=== PATIENT | female | born 1985 | race African-American/Black ===

== ENCOUNTER 2017-03-04 09:07 | Emergency (ER) | payer SELFPAY ==
[2017-03-04 09:29] VITALS: BP 130/85
--- NOTE | 2017-03-04 09:52 | EDM.PDOC ---
ED HPI RENAL/ - General Chief Complaint: Genitourinary Problem Stated Complaint: Blood in urine Time Seen by Provider: 03/04/17 09:35 Source of Information: Reports: Patient, RN notes reviewed History Limitations: Reports: No limitations - History of Present Illness INITIAL COMMENTS - FREE TEXT/NARRATIVE: 31 year old female presents to the ED with chief complaint of blood in her urine. She noticed the blood in her urine two days ago. Prior to that, she has some pelvic discomfort, dysuria, and flank pain. These symptoms have now subsided. She says she feels feverish at times. No chills or shakes. No abdominal pain, pelvic pain, nausea, vomiting. Her LMP was 01/19/17. She had a negative test at home. She just arrived to the [facility] from [facility] to be with her . They have one child who also came with her. They said that they were prescribed clomid prior to getting with their first chills. They are hoping for another child and would like to discuss treatment with clomid again. - Related Data Allergies/ADRs: Allergies Allergy/AdvReac Type Severity Reaction Status Date / Time No Known Allergies Allergy Verified 03/04/17 09:33 Home Meds: Home Meds Sulfamethoxazole/Trimethoprim [Bactrim Ds Tablet] 1 each PO BID #6 tablet [Rx] Past Medical History - Past Health History Medical/Surgical History: Denies Medical/Surgical History Social & Family History - Tobacco Use Smoking Status *Q: Never Smoker - Caffeine Use Caffeine Use: Reports: None - Recreational Drug Use Recreational Drug Use: No ED ROS GENERAL - Review of Systems Review Of Systems: See Below Constitutional: Reports: fever. Denies: chills, diaphoresis Respiratory: Reports: No Symptoms Cardiovascular: Reports: No symptoms GI/Abdominal: Reports: No symptoms. Denies: Abdominal pain, Nausea, Vomiting : Reports: hematuria. Denies: dysuria, flank pain, frequency ED EXAM, RENAL/ - Physical Exam Exam: See Below Exam Limited By: No limitations General Appearance: alert, WD/WN, no apparent distress Respiratory/Chest: no respiratory distress, lungs clear, normal breath sounds Cardiovascular: regular rate, rhythm GI/Abdominal: normal bowel sounds, soft, non tender Back Exam: normal inspection, full range of motion. No: CVA tenderness (L), CVA tenderness (R) Course - Vital Signs Last Recorded V/S: Last Vital Signs Temp 97.4 F 03/04/17 09:28 Pulse 74 03/04/17 09:28 Resp 20 03/04/17 09:28 BP 130/85 03/04/17 09:28 Pulse Ox 100 03/04/17 09:28 - Orders/Labs/Meds Labs: Laboratory Tests 03/04/17 03/04/17 Range/Units 09:30 09:30 Urine Color [place] H (Yellow) Urine Appearance Slt cloudy H (Clear) Urine pH 7.0 (5.0-8.0) Ur Specific [place] 1.020 (1.005-1.030) Urine Protein 1+ H (Negative) Urine Glucose (UA) Negative (Negative) Urine Ketones Negative (Negative) Urine Occult Blood 3+ H (Negative) Urine Nitrite Negative (Negative) Urine Bilirubin Negative (Negative) Urine Urobilinogen 0.2 (0.2-1.0) Ur Leukocyte Esterase 2+ H (Negative) Urine RBC 75-100 H (0-5) /hpf Urine WBC 5-10 H (0-5) /hpf Ur Epithelial Cells 10-20 H (0-5) /hpf Urine Bacteria Few (FEW) /hpf Urine Mucus Not seen (FEW) /hpf Urine HCG, Qual Negative (NEGATIVE) - Re-Assessments/Exams Free Text/Narrative Re-Assessment/Exam: Hcg negative. UA positive for infection. Culture ordered. Will start patient on Bactrim DS. Will refer to Celsa Mackey NP for fertility concerns. Departure - Departure Time of Disposition: 10:22 Disposition: Home, Self-Care 01 Condition: good Clinical Impression: UTI, Urinary tract infectious disease Prescriptions: Sulfamethoxazole/Trimethoprim [Bactrim Ds Tablet] 1 each PO BID #6 tablet Instructions: Urinary Tract Infection, Adult, [id number] Referrals: PCP,None [Primary Care Provider] - Forms: ED Department Discharge Additional Instructions: Bactrim DS 1 tab twice a day for 3 days [facility] ([place] [address] from [facility]) is open from Noon-4pm today Drink plenty of water Tylenol 650mg every 4-6 hours as needed for pain or fever You can also take Ibuprofen 400mg every 8 hours as needed for pain or fever Return to ER if symptoms worsen Follow-up with Celsa Mackey NP in [facility]. Call [phone] to schedule an appointment
== END 2017-03-04 10:55 | disposition home or self-care (01) ==
LOC: JD.ED 09:07
DX: N39.0 Urinary tract infection, site not specified (principal)
CPT/HCPCS: 81001; 81025; 99283

== ENCOUNTER 2017-08-08 22:10 | Emergency (ER) | payer BC, OTHER ==
[2017-08-08 22:17] VITALS: BP 120/76
[2017-08-08] MEDS ORDERED: Sodium Chloride 0.9% 10 ML Syringe FLUSH PRN (22:46)
[2017-08-08] MEDS ORDERED: Famotidine 20 MG/2 ML SDV IVPUSH ONE (22:46)
[2017-08-08] MEDS ORDERED: Ondansetron 4 MG/2 ML SDV IVPUSH ONE (22:46)
[2017-08-08] MEDS ORDERED: Sodium Chloride 0.9% 1,000 ML IV SCH (23:00)
--- NOTE | 2017-08-08 23:05 | EDM.PDOC ---
ED HPI GENERAL MEDICAL PROBLEM - General Chief Complaint: Chest Pain Stated Complaint: CHEST PAIN Time Seen by Provider: 08/08/17 22:37 Source of Information: Reports: Patient, RN Notes Reviewed - History of Present Illness INITIAL COMMENTS - FREE TEXT/NARRATIVE: 31-year-old female developed onset of anterior chest discomfort shortly after eating this last evening. The pain did start upper mid abdomen radiating up the center of her chest toward the base of her neck. She has had history of GE reflux type symptoms in the past and did take an omeprazole at home prior to coming in. S He also did have some nausea with this but no vomiting. She does not feel short of breath. She is 25 weeks . That has been going well for her. No lower abdominal pain or cramping at this time. There has been no vaginal bleeding or spotting. 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 (see below) Other Treatments AEROBICS TEACHER: omeprazole Right Chest Pain Score (Numeric/FACES): 8 - Related Data Allergies Allergy/AdvReac Type Severity Reaction Status Date / Time Buine Allergy Abdominal Uncoded 08/08/17 22:18 Pain Home Meds: Home Meds Omeprazole 20 mg PO DAILY 08/08/17 [History] Vit No.129/Iron/FA [ Tablet] 1 each PO DAILY 08/08/17 [History] Past Medical History - Past Health History Medical/Surgical History: Denies Medical/Surgical History HEENT History: Reports: Impaired Vision Gastrointestinal History: Reports: GERD Genitourinary History: Reports: Renal Calculus 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 Denies: Lightheadedness GI/Abdominal: Reports: Abdominal Pain (Upper mid abdomen), Nausea. Denies: Diarrhea, Vomiting : Reports: No Symptoms Musculoskeletal: Reports: Back Pain Skin: Reports: No Symptoms (Occasional mild back discomfort) Neurological: Denies: Numbness, Tingling ED EXAM, GI/ABD - Physical Exam Exam: See Below (Blood pressure 120/76, temp 97.2, pulse 89 respirations 16, oximetry 100% on room air) General Appearance: Alert, No Apparent Distress Nose: Normal Inspection Throat/Mouth: Normal Inspection Respiratory/Chest: No Respiratory Distress, Lungs Clear, Normal Breath Sounds Cardiovascular: Regular Rate, Rhythm GI/Abdominal Exam: Soft, Tender (Primary mild tenderness upper mid abdomen, mild tenderness right lower quadrant). No: Guarding, Rebound Back Exam: No: CVA Tenderness (L), CVA Tenderness (R) Extremities: Normal Inspection. No: Pedal Edema, Leg Pain, Increased Warmth Neurological: Alert, Oriented, No Motor/Sensory Deficits Skin Exam: Warm, Dry, Normal Color Course - Vital Signs Last Recorded V/S: Last Vital Signs Temp 97.2 F 08/08/17 22:12 Pulse 89 08/08/17 22:12 Resp BP 120/76 08/08/17 22:12 Pulse Ox - Orders/Labs/Meds Orders: Active Orders 24 hr Category Date Time Status Peripheral IV Care [RC] . DIRECTED Care 08/08/17 22:47 Active CBC WITH AUTO DIFF [HEME] Stat Lab 08/08/17 22:46 Ordered COMPREHENSIVE METABOLIC PN,CMP [CHEM] Stat Lab 08/08/17 22:46 Ordered CRP [C-REACTIVE PROTEIN] [CHEM] Routine Lab 08/08/17 22:46 Ordered Acetaminophen [Tylenol] Med 08/08/17 23:53 Once 650 mg PO NOW ONE Sodium Chloride 0.9% [Normal Saline] 1,000 ml Med 08/08/17 23:00 Active IV ASDIRECTED Sodium Chloride 0.9% [Saline Flush] Med 08/08/17 22:46 Active 10 ml FLUSH ASDIRECTED PRN Peripheral IV Insertion Adult [OM.PC] Stat Oth 08/08/17 22:46 Ordered Medication Orders Sodium Chloride (Normal Saline) 1,000 mls @ 150 mls/hr IV ASDIRECTED TRACY Last Admin: 08/08/17 23:03 Dose: 150 mls/hr Sodium Chloride (Saline Flush) 10 ml FLUSH ASDIRECTED PRN PRN Reason: Keep Vein Open Last Admin: 08/08/17 23:05 Dose: 10 ml Meds: Medications Generic Name Dose Route Start Last Admin Trade Name Purvi PRN Reason Stop Dose Admin Sodium Chloride 1,000 mls @ 150 mls/hr 08/08/17 23:00 08/08/17 23:03 Normal Saline IV 150 mls/hr ASDIRECTED TRACY Administration Sodium Chloride 10 ml 08/08/17 22:46 08/08/17 23:05 Saline Flush FLUSH 10 ml ASDIRECTED PRN Administration Keep Vein Open Discontinued Medications Generic Name Dose Route Start Last Admin Trade Name Purvi PRN Reason Stop Dose Admin Famotidine 20 mg 08/08/17 22:46 08/08/17 23:06 Pepcid IVPUSH 08/08/17 22:47 20 mg ONETIME ONE Administration Ondansetron HCl 4 mg 08/08/17 22:46 08/08/17 23:04 Zofran IVPUSH 08/08/17 22:47 4 mg ONETIME ONE Administration - Re-Assessments/Exams Free Text/Narrative Re-Assessment/Exam: 08/08/17 23:54 Labs have been ordered with concern for possible gallbladder disease, less likely appendicitis. On exam initially she was tender right upper quadrant to some extent and then also did have some right lower and right mid abdominal tenderness. Unfortunately lab has been able to find a suitable vein to run these studies after multiple attempts. She feels better. Therefore we are going to cancel the lab work. We'll give Tylenol 650 by mouth at this time for mild to moderate left-sided headache. Her blood pressures been running in the 110 to 114 range systolic, not elevated. She has no peripheral leg or ankle edema. O2 sats continue to run in the 100% range. Discharge instructions as documented. Etiology of upper abdominal, chest discomfort most likely GE reflux which she has had in the past. Departure - Departure Time of Disposition: 23:56 Disposition: Home, Self-Care 01 Condition: Fair (GE reflux) Clinical Impression: Second trimester GE reflux Qualifiers: Esophagitis presence: without esophagitis Qualified Code(s): K21.9 - Gastro- esophageal reflux disease without esophagitis - Discharge Information Forms: ED Department Discharge Additional Instructions: Clear liquids until morning, then very careful bland diet as tolerated, avoid real fatty or spicy foods for now, follow-up with your regular clinical providers as needed if symptoms not resolving as expected, return to ED if symptoms worsening in any way. - My Orders Last 24 Hours: My Active Orders 08/08/17 22:46 CBC WITH AUTO DIFF [HEME] Stat COMPREHENSIVE METABOLIC PN,CMP [CHEM] Stat CRP [C-REACTIVE PROTEIN] [CHEM] Routine Sodium Chloride 0.9% [Saline Flush] 10 ml FLUSH ASDIRECTED PRN Peripheral IV Insertion Adult [OM.PC] Stat 08/08/17 22:47 Peripheral IV Care [RC] . DIRECTED 08/08/17 23:00 Sodium Chloride 0.9% [Normal Saline] 1,000 ml IV ASDIRECTED 08/08/17 23:53 Acetaminophen [Tylenol] 650 mg PO NOW ONE - Assessment/Plan Last 24 Hours: My Active Orders 08/08/17 22:46 CBC WITH AUTO DIFF [HEME] Stat COMPREHENSIVE METABOLIC PN,CMP [CHEM] Stat CRP [C-REACTIVE PROTEIN] [CHEM] Routine Sodium Chloride 0.9% [Saline Flush] 10 ml FLUSH ASDIRECTED PRN Peripheral IV Insertion Adult [OM.PC] Stat 08/08/17 22:47 Peripheral IV Care [RC] . DIRECTED 08/08/17 23:00 Sodium Chloride 0.9% [Normal Saline] 1,000 ml IV ASDIRECTED 08/08/17 23:53 Acetaminophen [Tylenol] 650 mg PO NOW ONE
[2017-08-08] MEDS ORDERED: Acetaminophen 325 MG Tab PO ONE (23:53)
== END 2017-08-09 00:10 | disposition home or self-care (01) ==
LOC: JD.ED 22:10
DX: O99.612 Diseases of the digestive system complicating pregnancy, second trimester (principal); K21.9 Gastro-esophageal reflux disease without esophagitis; Z79.899 Other long term (current) drug therapy; Z87.442 Personal history of urinary calculi; Z3A.25 25 weeks gestation of pregnancy
CPT/HCPCS: 96361; 96374; 96375; 99285; A9270; J2405; J7040; J7050; 99284

== ENCOUNTER 2017-12-06 00:10 | Inpatient (IN) | payer BC ==
[2017-12-06] MEDS ORDERED: Lactated Ringers 1,000 ML IV SCH (01:15)
[2017-12-06] MEDS ORDERED: Lidocaine 1% 50 ML MDV INJECT ONE (02:30)
[2017-12-06] MEDS ORDERED: Sodium Chloride 0.9% 10 ML Syringe FLUSH PRN (02:30)
[2017-12-06] MEDS ORDERED: Oxytocin/Lactated Ringers 10 UNIT/1,000 ML BAG IV SCH (02:30)
[2017-12-06] MEDS ORDERED: Nalbuphine 20 MG/1 ML Amp IVPUSH PRN (02:30)
[2017-12-06] MEDS ORDERED: Ondansetron 4 MG/2 ML SDV IVPUSH PRN (02:30)
--- NOTE | 2017-12-06 03:08 | PCM.DEL ---
L & D Note - General Info Date of Service: 12/06/17 Mother's Due Date: 12/15/17 - Delivery Note Labor: Spontaneous, Augmented by ARM (Amniotomy clear fluid at 0239 hrs. on 12/06/17. (Patient was complete at that time)) Delivery Outcome: Livebirth (Female liveborn 12/06/17 at 0249 hrs. MIRANDA no nuchal cord Apgars 8/9 weight 20/6/40 grams 5 pounds 13.1 ounces) Infant Delivery Method: Spontaneous Vaginal Delivery-Single Delivery Mode: Spontaneous Presentation: Left Occiput Anterior (MIRANDA) Nuchal Cord: None Prep: Povidone-Iodine (Betadine Anesthesia Type: None Amniotic Fluid Description: Clear Episiotomy Type: None Laceration: None Placenta: Intact, Spontaneous (Placenta delivered spontaneously at 0252 hrs. on 12/06/17.) Cord: 3 Vessels Estimated Blood Loss: 250 Resuscitation Needed: No : Suctioned, Bulb Syringe, Stimulated, Warmed, Warmer Used Provider: Trever Russ Score 1 min: 8 Score 5 min: 9 - Patient Data Weight - Most Recent: 194 lb Lab Results Last 24 Hours: Laboratory Results - last 24 hr 12/06/17 Range/Units 02:00 WBC 11.33 H (3.98-10.04) K/mm3 RBC 4.24 (3.98-5.22) M/mm3 Hgb 11.8 (11.2-15.7) gm/L Hct 34.9 (34.1-44.9) % MCV 82.3 (79.4-94.8) fl MCH 27.8 (25.6-32.2) pg MCHC 33.8 (32.2-35.5) g/dl RDW Std Deviation 40.1 (36.4-46.3) fL Plt Count 251 (182-369) K/mm3 MPV 10.4 (9.4-12.3) fl Neut % (Auto) 65.0 (34.0-71.1) % Lymph % (Auto) 25.8 (19.3-51.7) % [place] % (Auto) 8.3 (4.7-12.5) % Eos % (Auto) 0.5 L (0.7-5.8) Baso % (Auto) 0.1 (0.1-1.2) % Neut # (Auto) 7.37 H (1.56-6.13) K/mm3 Lymph # (Auto) 2.92 (1.18-3.74) K/mm3 [place] # (Auto) 0.94 H (0.24-0.36) K/mm3 Eos # (Auto) 0.06 (0.04-0.36) K/mm3 Baso # (Auto) 0.01 (0.01-0.08) K/mm3 Med Orders - Current: Current Medications Lactated Ringer's (Ringers, Lactated) 1,000 mls @ 125 mls/hr IV ASDIRECTED TRACY Oxytocin/Lactated Ringer's (Pitocin In Lr 10 Units/1,000 Ml) 10 unit in 1,000 mls @ 500 mls/hr IV .CONTINUOUS TRACY Nalbuphine HCl (Nubain) 10 mg IVPUSH Q2H PRN PRN Reason: Pain (moderate 4-6) Ondansetron HCl (Zofran) 4 mg IVPUSH Q4H PRN PRN Reason: Nausea/Vomiting Sodium Chloride (Saline Flush) 10 ml FLUSH ASDIRECTED PRN PRN Reason: Keep Vein Open Discontinued Medications Lidocaine HCl (Xylocaine 1%) 50 ml INJECT ONETIME ONE Stop: 12/06/17 02:31 - Problem List & Annotations (1) 38 weeks gestation of SNOMED Code(s): 65466162 Code(s): Z3A.38 - 38 WEEKS GESTATION OF Status: Acute Current Visit: Yes (2) Delivery normal SNOMED Code(s): 43294747 Code(s): O80 - ENCOUNTER FOR FULL-TERM UNCOMPLICATED DELIVERY; Z37.9 - OUTCOME OF DELIVERY, UNSPECIFIED Status: Acute Current Visit: Yes - Problem List Review Problem List Initiated/Reviewed/Updated: No - My Orders Last 24 Hours: My Active Orders 12/06/17 01:15 Non Stress Test [RC] PER UNIT ROUTINE Vital Signs [RC] PER UNIT ROUTINE Lactated Ringers [Ringers, Lactated] 1,000 ml IV ASDIRECTED 12/06/17 01:46 Monitoring [RC] CONTINUOUS 12/06/17 01:47 Resuscitation Status Routine 12/06/17 02:00 TYPE AND SCREEN [BBK] Stat 12/06/17 02:30 Patient Status [ADT] Routine Activity as Tolerated [RC] PFP Communication Order [RC] ASDIRECTED Heart Tones [RC] ASDIRECTED Notify Provider [RC] PFP Notify Provider [RC] PRN Peripheral IV Care [RC] . DIRECTED Vital Signs [RC] PER UNIT ROUTINE Nalbuphine [Nubain] 10 mg IVPUSH Q2H PRN Ondansetron [Zofran] 4 mg IVPUSH Q4H PRN Oxytocin/Lactated Ringers [Pitocin in LR 10 Units/1,000 ML] 10 unit in 1,000 ml IV .CONTINUOUS Sodium Chloride 0.9% [Saline Flush] 10 ml FLUSH ASDIRECTED PRN Electronic Heart Tones Ext w TOCO [WOMSER] Routine Electronic Heart Tones Internal [WOMSER] Per Unit Routine Peripheral IV Insertion Adult [OM.PC] Routine 12/06/17 Breakfast Regular Diet [DIET]
--- NOTE | 2017-12-06 03:12 | PCM.LDHP ---
L&D History of Present Illness - General Date of Service: 12/06/17 Admit Problem/Dx: Patient Status Order with Admit Dx/Problem 12/06/17 01:15 Patient Status [ADT] Routine 12/06/17 02:30 Patient Status [ADT] Routine Admission Diagnosis/Problem Admission Diagnosis/Problem Source of Information: Patient History Limitations: Reports: No Limitations - History of Present Illness Introduction:: 32-year-old 001 BERRY 12/15/17 presented to labor and delivery at 38 weeks 5 days estimated gestational age complaining of contractions every 3-4 minutes. No history of gush of fluid her group B strep was negative patient progressed from 1 cm dilated when admitted to labor and delivery just around midnight to delivery at 0 0249 hrs. Location, : Reports: Abdomen, Lower back Quality: Reports: Ache, Burning, Pressure Improves with: Reports: None Worsens with: Reports: None Associated Symptoms: Reports: N - Related Data Allergies/Adverse Reactions: Allergies Allergy/AdvReac Type Severity Reaction Status Date / Time Buine Allergy Abdominal Uncoded 08/08/17 22:18 Pain Home Medications: Home Meds Omeprazole 20 mg PO DAILY 08/08/17 [History] Vit No.129/Iron/FA [ Tablet] 1 each PO DAILY 08/08/17 [History] Past Medical History - Past Health History Medical/Surgical History: Denies Medical/Surgical History HEENT History: Reports: Impaired Vision Gastrointestinal History: Reports: GERD Genitourinary History: Reports: Renal Calculus 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 OB/BYN History: x2 Social & Family History - Family History Family Medical History: Noncontributory - Tobacco Use Smoking Status *Q: Never Smoker - Caffeine Use Caffeine Use: Reports: None - Recreational Drug Use Recreational Drug Use: No H&P Review of Systems - Review of Systems: Review Of Systems: See Below General: Reports: No Symptoms HEENT: Reports: No Symptoms Pulmonary: Reports: No Symptoms Cardiovascular: Reports: No Symptoms Gastrointestinal: Reports: No Symptoms Genitourinary: Reports: No Symptoms Musculoskeletal: Reports: No Symptoms Skin: Reports: No Symptoms Psychiatric: Reports: No Symptoms Neurological: Reports: No Symptoms Hematologic/Lymphatic: Reports: No Symptoms Immunologic: Reports: No Symptoms L&D Exam - Exam Exam: See Below - Vital Signs Weight: 194 lb - OB Specific Fundal Height In cm: 38 Contraction Duration (sec): 60 Contraction Frequency (min): 2 Contraction Intensity: Moderate to Strong Movement: Active Heart Tones: Present Heart Tones per Min: 140 Heart Rate (FHR) Variability: Moderate (6-25 bmp) Presentation: Left Occiput Anterior (MIRANDA) - Kelly Score Kelly Score Cervix Position: Anterior Kelly Score Consistency: Soft Kelly Score Effacement: >80% Kelly Score Dilation: 1-2 cm Kelly Score 's Station: -2 Kelly Score Total: 9 - Exam General: Alert, Oriented HEENT: Conjunctiva Clear, Mucosa Moist & [place], PERRLA Neck: Supple, Trachea Midline Lungs: Clear to Auscultation, Normal Respiratory Effort Cardiovascular: Regular Rate, Regular Rhythm GI/Abdominal Exam: Normal Bowel Sounds, Soft, Non-Tender Genitourinary: Normal external exam, Normal bimanual exam, Normal speculum exam Back Exam: Normal Inspection, Full Range of Motion Extremities: Normal Inspection, Normal Range of Motion, Non-Tender, No Pedal Edema, Normal Capillary Refill Skin: Warm, Dry, Intact Neurological: Cranial Nerves Intact, Reflexes Equal Bilateral Psychiatric: Alert, Normal Affect, Normal Mood - Patient Data Lab Results Last 24 hrs: Laboratory Results - last 24 hr 12/06/17 12/06/17 Range/Units 02:00 02:00 WBC 11.33 H (3.98-10.04) K/mm3 RBC 4.24 (3.98-5.22) M/mm3 Hgb 11.8 (11.2-15.7) gm/L Hct 34.9 (34.1-44.9) % MCV 82.3 (79.4-94.8) fl MCH 27.8 (25.6-32.2) pg MCHC 33.8 (32.2-35.5) g/dl RDW Std Deviation 40.1 (36.4-46.3) fL Plt Count 251 (182-369) K/mm3 MPV 10.4 (9.4-12.3) fl Neut % (Auto) 65.0 (34.0-71.1) % Lymph % (Auto) 25.8 (19.3-51.7) % [place] % (Auto) 8.3 (4.7-12.5) % Eos % (Auto) 0.5 L (0.7-5.8) Baso % (Auto) 0.1 (0.1-1.2) % Neut # (Auto) 7.37 H (1.56-6.13) K/mm3 Lymph # (Auto) 2.92 (1.18-3.74) K/mm3 [place] # (Auto) 0.94 H (0.24-0.36) K/mm3 Eos # (Auto) 0.06 (0.04-0.36) K/mm3 Baso # (Auto) 0.01 (0.01-0.08) K/mm3 Blood Type A POSITIVE Result Diagrams: 12/06/17 02:00 - Problem List (1) 38 weeks gestation of SNOMED Code(s): 92902132 ICD Code: Z3A.38 - 38 WEEKS GESTATION OF Status: Acute Current Visit: Yes (2) Delivery normal SNOMED Code(s): 41848697 ICD Code: O80 - ENCOUNTER FOR FULL-TERM UNCOMPLICATED DELIVERY; Z37.9 - OUTCOME OF DELIVERY, UNSPECIFIED Status: Acute Current Visit: Yes Problem List Initiated/Reviewed/Updated: No Orders Last 24hrs: Active Orders 24 hr Category Date Time Status Patient Status [ADT] Routine ADT 12/06/17 02:30 Active Activity as Tolerated [RC] PFP Care 12/06/17 02:30 Active Communication Order [RC] ASDIRECTED Care 12/06/17 02:30 Active Heart Tones [RC] ASDIRECTED Care 12/06/17 02:30 Active Monitoring [RC] CONTINUOUS Care 12/06/17 01:46 Active Non Stress Test [RC] PER UNIT ROUTINE Care 12/06/17 01:15 Active Notify Provider [RC] PFP Care 12/06/17 02:30 Active Notify Provider [RC] PRN Care 12/06/17 02:30 Active Peripheral IV Care [RC] . DIRECTED Care 12/06/17 02:30 Active Vital Signs [RC] PER UNIT ROUTINE Care 12/06/17 01:15 Active Vital Signs [RC] PER UNIT ROUTINE Care 12/06/17 02:30 Active Regular Diet [DIET] Diet 12/06/17 Breakfast Active TYPE AND SCREEN [BBK] Stat Lab 12/06/17 02:00 Received Lactated Ringers [Ringers, Lactated] 1,000 ml Med 12/06/17 01:15 Active IV ASDIRECTED Nalbuphine [Nubain] Med 12/06/17 02:30 Active 10 mg IVPUSH Q2H PRN Ondansetron [Zofran] Med 12/06/17 02:30 Active 4 mg IVPUSH Q4H PRN Oxytocin/Lactated Ringers [Pitocin in LR 10 Units/1,000 Med 12/06/17 02:30 Active ML] 10 unit in 1,000 ml IV .CONTINUOUS Sodium Chloride 0.9% [Saline Flush] Med 12/06/17 02:30 Active 10 ml FLUSH ASDIRECTED PRN Electronic Heart Tones Ext w TOCO [WOMSER] Ot 12/06/17 02:30 Ordered Routine Electronic Heart Tones Internal [WOMSER] Per Unit Ot 12/06/17 02:30 Ordered Routine Peripheral IV Insertion Adult [OM.PC] Routine Ot 12/06/17 02:30 Ordered Resuscitation Status Routine Resus Stat 12/06/17 01:47 Ordered Medication Orders Lactated Ringer's (Ringers, Lactated) 1,000 mls @ 125 mls/hr IV ASDIRECTED TRACY Oxytocin/Lactated Ringer's (Pitocin In Lr 10 Units/1,000 Ml) 10 unit in 1,000 mls @ 500 mls/hr IV .CONTINUOUS TRACY Nalbuphine HCl (Nubain) 10 mg IVPUSH Q2H PRN PRN Reason: Pain (moderate 4-6) Ondansetron HCl (Zofran) 4 mg IVPUSH Q4H PRN PRN Reason: Nausea/Vomiting Sodium Chloride (Saline Flush) 10 ml FLUSH ASDIRECTED PRN PRN Reason: Keep Vein Open
[2017-12-06] MEDS ORDERED: Docusate Sodium 100 MG Cap PO PRN (03:17)
[2017-12-06] MEDS ORDERED: Lanolin 100% Cream 7 GM Tube TOP PRN (03:17)
[2017-12-06] MEDS ORDERED: Witch Hazel Medicated Pads 100/Jar TOP PRN (03:17)
[2017-12-06] MEDS ORDERED: Acetaminophen 325 MG Tab PO PRN (03:17)
[2017-12-06] MEDS ORDERED: Benzocaine/Menthol 20%-0.5% Spray 56 GM Canister TOP PRN (03:17)
[2017-12-06] MEDS: Ibuprofen 600 MG Tab PO PRN ×2 (11:56→21:09)
[2017-12-07 06:46] VITALS: BP 103/55
--- NOTE | 2017-12-07 08:15 | PCM.DCSUM1 ---
Discharge Summary - Hospital Course Free Text/Narrative:: [facility] LIVE L/D Delivery Note Patient Name: ANA MARIA BOBO Date of : 83 Patient Status: Inpatient Attending Provider: Trever Russ Date: 12/06/17 03:04 Initialization Date: 12/06/17 03:04 L & D Note - General Info Date of Service: 12/06/17 Mother's Due Date: 12/15/17 - Delivery Note Labor: Spontaneous, Augmented by ARM (Amniotomy clear fluid at 0239 hrs. on 12/06/17. (Patient was complete at that time)) Delivery Outcome: Livebirth (Female liveborn 12/06/17 at 0249 hrs. MIRANDA no nuchal cord Apgars 8/9 weight 20/6/40 grams 5 pounds 13.1 ounces) Infant Delivery Method: Spontaneous Vaginal Delivery-Single Infant Delivery Mode: Spontaneous Presentation: Left Occiput Anterior (MIRANDA) Nuchal Cord: None Prep: Povidone-Iodine (Betadine Anesthesia Type: None Amniotic Fluid Description: Clear Episiotomy Type: None Laceration: None Placenta: Intact, Spontaneous (Placenta delivered spontaneously at 0252 hrs. on 12/06/17.) Cord: 3 Vessels Estimated Blood Loss: 250 Resuscitation Needed: No [place]: Suctioned, Bulb Syringe, Stimulated, Warmed, Warmer Used Provider: Trever Russ Score 1 min: 8 Score 5 min: 9 - Patient Data Weight - Most Recent: 194 lb Lab Results Last 24 Hours: Laboratory Results - last 24 hr 12/06/17 Range/Units 02:00 WBC 11.33 H (3.98-10.04) K/mm3 RBC 4.24 (3.98-5.22) M/mm3 Hgb 11.8 (11.2-15.7) gm/L Hct 34.9 (34.1-44.9) % MCV 82.3 (79.4-94.8) fl MCH 27.8 (25.6-32.2) pg MCHC 33.8 (32.2-35.5) g/dl RDW Std Deviation 40.1 (36.4-46.3) fL Plt Count 251 (182-369) K/mm3 MPV 10.4 (9.4-12.3) fl Neut % (Auto) 65.0 (34.0-71.1) % Lymph % (Auto) 25.8 (19.3-51.7) % Stan[place] % (Auto) 8.3 (4.7-12.5) % Eos % (Auto) 0.5 L (0.7-5.8) Baso % (Auto) 0.1 (0.1-1.2) % Neut # (Auto) 7.37 H (1.56-6.13) K/mm3 Lymph # (Auto) 2.92 (1.18-3.74) K/mm3 Stan[place] # (Auto) 0.94 H (0.24-0.36) K/mm3 Eos # (Auto) 0.06 (0.04-0.36) K/mm3 Baso # (Auto) 0.01 (0.01-0.08) K/mm3 Med Orders - Current: Current Medications Lactated Ringer's (Ringers, Lactated) 1,000 mls @ 125 mls/hr IV ASDIRECTED TRACY Oxytocin/Lactated Ringer's (Pitocin In Lr 10 Units/1,000 Ml) 10 unit in 1,000 mls @ 500 mls/hr IV .CONTINUOUS TRACY Nalbuphine HCl (Nubain) 10 mg IVPUSH Q2H PRN PRN Reason: Pain (moderate 4-6) Ondansetron HCl (Zofran) 4 mg IVPUSH Q4H PRN PRN Reason: Nausea/Vomiting Sodium Chloride (Saline Flush) 10 ml FLUSH ASDIRECTED PRN PRN Reason: Keep Vein Open Discontinued Medications Lidocaine HCl (Xylocaine 1%) 50 ml INJECT ONETIME ONE Stop: 12/06/17 02:31 - Problem List & Annotations (1) 38 weeks gestation of SNOMED Code(s): 53725056 Code(s): Z3A.38 - 38 WEEKS GESTATION OF Status: Acute Current Visit: Yes (2) Delivery normal SNOMED Code(s): 43475678 Code(s): O80 - ENCOUNTER FOR FULL-TERM UNCOMPLICATED DELIVERY; Z37.9 - OUTCOME OF DELIVERY, UNSPECIFIED Status: Acute Current Visit: Yes - Problem List Review Problem List Initiated/Reviewed/Updated: No - My Orders Last 24 Hours: My Active Orders 12/06/17 01:15 Non Stress Test [RC] PER UNIT ROUTINE Vital Signs [RC] PER UNIT ROUTINE Lactated Ringers [Ringers, Lactated] 1,000 ml IV ASDIRECTED 12/06/17 01:46 Monitoring [RC] CONTINUOUS 12/06/17 01:47 Resuscitation Status Routine 12/06/17 02:00 TYPE AND SCREEN [BBK] Stat 12/06/17 02:30 Patient Status [ADT] Routine Activity as Tolerated [RC] PFP Communication Order [RC] ASDIRECTED Heart Tones [RC] ASDIRECTED Notify Provider [RC] PFP Notify Provider [RC] PRN Peripheral IV Care [RC] . DIRECTED Vital Signs [RC] PER UNIT ROUTINE Nalbuphine [Nubain] 10 mg IVPUSH Q2H PRN Ondansetron [Zofran] 4 mg IVPUSH Q4H PRN Oxytocin/Lactated Ringers [Pitocin in LR 10 Units/1,000 ML] 10 unit in 1,000 ml IV .CONTINUOUS Sodium Chloride 0.9% [Saline Flush] 10 ml FLUSH ASDIRECTED PRN Electronic Heart Tones Ext w TOCO [WOMSER] Routine Electronic Heart Tones Internal [WOMSER] Per Unit Routine Peripheral IV Insertion Adult [OM.PC] Routine 12/06/17 Breakfast Regular Diet [DIET] HPI Initial Comments: [facility] LIVE L/D Delivery Note Patient Name: ANA MARIA BOBO Date of : 83 Patient Status: Inpatient Attending Provider: Trever Russ Date: 12/06/17 03:04 Initialization Date: 12/06/17 03:04 L & D Note - General Info Date of Service: 12/06/17 Mother's Due Date: 12/15/17 - Delivery Note Labor: Spontaneous, Augmented by ARM (Amniotomy clear fluid at 0239 hrs. on 12/06/17. (Patient was complete at that time)) Delivery Outcome: Livebirth (Female liveborn 12/06/17 at 0249 hrs. MIRANDA no nuchal cord Apgars 8/9 weight 20/6/40 grams 5 pounds 13.1 ounces) Infant Delivery Method: Spontaneous Vaginal Delivery-Single Delivery Mode: Spontaneous Presentation: Left Occiput Anterior (MIRANDA) Nuchal Cord: None Prep: Povidone-Iodine (Betadine Anesthesia Type: None Amniotic Fluid Description: Clear Episiotomy Type: None Laceration: None Placenta: Intact, Spontaneous (Placenta delivered spontaneously at 0252 hrs. on 12/06/17.) Cord: 3 Vessels Estimated Blood Loss: 250 Resuscitation Needed: No [place]: Suctioned, Bulb Syringe, Stimulated, Warmed, Warmer Used Provider: Trever Russ Score 1 min: 8 Score 5 min: 9 - Patient Data Weight - Most Recent: 194 lb Lab Results Last 24 Hours: Laboratory Results - last 24 hr 12/06/17 Range/Units 02:00 WBC 11.33 H (3.98-10.04) K/mm3 RBC 4.24 (3.98-5.22) M/mm3 Hgb 11.8 (11.2-15.7) gm/L Hct 34.9 (34.1-44.9) % MCV 82.3 (79.4-94.8) fl MCH 27.8 (25.6-32.2) pg MCHC 33.8 (32.2-35.5) g/dl RDW Std Deviation 40.1 (36.4-46.3) fL Plt Count 251 (182-369) K/mm3 MPV 10.4 (9.4-12.3) fl Neut % (Auto) 65.0 (34.0-71.1) % Lymph % (Auto) 25.8 (19.3-51.7) % Stan[place] % (Auto) 8.3 (4.7-12.5) % Eos % (Auto) 0.5 L (0.7-5.8) Baso % (Auto) 0.1 (0.1-1.2) % Neut # (Auto) 7.37 H (1.56-6.13) K/mm3 Lymph # (Auto) 2.92 (1.18-3.74) K/mm3 Stan[place] # (Auto) 0.94 H (0.24-0.36) K/mm3 Eos # (Auto) 0.06 (0.04-0.36) K/mm3 Baso # (Auto) 0.01 (0.01-0.08) K/mm3 Med Orders - Current: Current Medications Lactated Ringer's (Ringers, Lactated) 1,000 mls @ 125 mls/hr IV ASDIRECTED TRACY Oxytocin/Lactated Ringer's (Pitocin In Lr 10 Units/1,000 Ml) 10 unit in 1,000 mls @ 500 mls/hr IV .CONTINUOUS TRACY Nalbuphine HCl (Nubain) 10 mg IVPUSH Q2H PRN PRN Reason: Pain (moderate 4-6) Ondansetron HCl (Zofran) 4 mg IVPUSH Q4H PRN PRN Reason: Nausea/Vomiting Sodium Chloride (Saline Flush) 10 ml FLUSH ASDIRECTED PRN PRN Reason: Keep Vein Open Discontinued Medications Lidocaine HCl (Xylocaine 1%) 50 ml INJECT ONETIME ONE Stop: 12/06/17 02:31 - Problem List & Annotations (1) 38 weeks gestation of SNOMED Code(s): 69053550 Code(s): Z3A.38 - 38 WEEKS GESTATION OF Status: Acute Current Visit: Yes (2) Delivery normal SNOMED Code(s): 93438508 Code(s): O80 - ENCOUNTER FOR FULL-TERM UNCOMPLICATED DELIVERY; Z37.9 - OUTCOME OF DELIVERY, UNSPECIFIED Status: Acute Current Visit: Yes - Problem List Review Problem List Initiated/Reviewed/Updated: No - My Orders Last 24 Hours: My Active Orders 12/06/17 01:15 Non Stress Test [RC] PER UNIT ROUTINE Vital Signs [RC] PER UNIT ROUTINE Lactated Ringers [Ringers, Lactated] 1,000 ml IV ASDIRECTED 12/06/17 01:46 Monitoring [RC] CONTINUOUS 12/06/17 01:47 Resuscitation Status Routine 12/06/17 02:00 TYPE AND SCREEN [BBK] Stat 12/06/17 02:30 Patient Status [ADT] Routine Activity as Tolerated [RC] PFP Communication Order [RC] ASDIRECTED Heart Tones [RC] ASDIRECTED Notify Provider [RC] PFP Notify Provider [RC] PRN Peripheral IV Care [RC] . DIRECTED Vital Signs [RC] PER UNIT ROUTINE Nalbuphine [Nubain] 10 mg IVPUSH Q2H PRN Ondansetron [Zofran] 4 mg IVPUSH Q4H PRN Oxytocin/Lactated Ringers [Pitocin in LR 10 Units/1,000 ML] 10 unit in 1,000 ml IV .CONTINUOUS Sodium Chloride 0.9% [Saline Flush] 10 ml FLUSH ASDIRECTED PRN Electronic Heart Tones Ext w TOCO [WOMSER] Routine Electronic Heart Tones Internal [WOMSER] Per Unit Routine Peripheral IV Insertion Adult [OM.PC] Routine 12/06/17 Breakfast Regular Diet [DIET] Brief History: [facility] LIVE . L/D Delivery Note. [facility]: [id number]. Date of : Patient Status: Inpatient. Attending Provider: Trever Russ Number: [id number]. Date: 12/06/17 03:04Initialization Date: 12/06/17 03:04. L & D Note. - General Info. Date of Service: 12/06/17. Mother's Due Date: 12/15/17. - Delivery Note. Labor: Spontaneous, Augmented by ARM (Amniotomy clear fluid at 0239 hrs. on 12/06/17. (Patient was complete at that time) ). Delivery Outcome: Livebirth (Female liveborn 12/06/17 at 0249 hrs. MIRANDA no nuchal cord Apgars 8/9 weight 20/6/40 grams 5 pounds 13.1 ounces). Infant Delivery Method: Spontaneous Vaginal Delivery-Single. Infant Delivery Mode: Spontaneous. Presentation: Left Occiput Anterior (MIRANDA). Nuchal Cord: None. Prep: Povidone-Iodine (Betadine. Anesthesia Type: None. Amniotic Fluid Description: Clear. Episiotomy Type: None. Laceration: None. Placenta: Intact, Spontaneous (Placenta delivered spontaneously at 0252 hrs. on .). Cord: 3 Vessels. Estimated Blood Loss: 250. Resuscitation Needed: No. : Suctioned, Bulb Syringe, Stimulated, Warmed, Warmer Used. Provider: Trever Russ. Score 1 min: 8. Score 5 min : 9. - Patient Data. Weight - Most Recent: 194 lb. Lab Results Last 24 Hours : Laboratory Results - last 24 hr. 12/06/17Range/Units. 02:00. WBC 11.33 H ( 3.98-10.04) K/mm3. RBC 4.24 (3.98-5.22) M/mm3. Hgb 11.8 (11.2-15.7) gm/L. Hct 34.9 (34.1-44.9) %. MCV 82.3 (79.4-94.8) fl. MCH 27.8 (25.6-32.2) pg. MCHC 33.8 (32.2-35.5) g/dl. RDW Std Deviation 40.1 (36.4-46.3) fL. Plt Count 251 (182-369) K/mm3. MPV 10.4 (9.4-12.3) fl. Neut % (Auto) 65.0 (34.0- 71.1) %. Lymph % (Auto) 25.8 (19.3-51.7) %. Stan[place] % (Auto) 8.3 (4.7-12.5) % . Eos % (Auto) 0.5 L (0.7-5.8). Baso % (Auto) 0.1 (0.1-1.2) %. Neut # (Auto ) 7.37 H (1.56-6.13) K/mm3. Lymph # (Auto) 2.92 (1.18-3.74) K/mm3. Stan[place] # ( Auto) 0.94 H (0.24-0.36) K/mm3. Eos # (Auto) 0.06 (0.04-0.36) K/mm3. Baso # (Auto) 0.01 (0.01-0.08) K/mm3. Med Orders - Current: Current Medications. Lactated Ringer's (Ringers, Lactated) 1,000 mls @ 125 mls/hr IV ASDIRECTED TRACY. Oxytocin/Lactated Ringer's (Pitocin In Lr 10 Units/1,000 Ml) 10 unit in 1 ,000 mls @ 500 mls/hr IV .CONTINUOUS TRACY. Nalbuphine HCl (Nubain) 10 mg IVPUSH Q2H PRN. PRN Reason: Pain (moderate 4-6). Ondansetron HCl (Zofran) 4 mg IVPUSH Q4H PRN. PRN Reason: Nausea/Vomiting. Sodium Chloride (Saline Flush ) 10 ml FLUSH ASDIRECTED PRN. PRN Reason: Keep Vein Open. Discontinued Medications. Lidocaine HCl (Xylocaine 1%) 50 ml INJECT ONETIME ONE. Stop: 06/15 02:31. - Problem List & Annotations. (1) 38 weeks gestation of . SNOMED Code(s): 33900214. Code(s): Z3A.38 - 38 WEEKS GESTATION OF Status: Acute Current Visit: Yes. (2) Delivery normal. SNOMED Code(s): 06014768. Code(s): O80 - ENCOUNTER FOR FULL-TERM UNCOMPLICATED DELIVERY; Z37.9 - OUTCOME OF DELIVERY, UNSPECIFIED Status: Acute Current Visit: Yes. - Problem List Review. Problem List Initiated/Reviewed/Updated: No. - My Orders. Last 24 Hours: My Active Orders. 12/06/17 01:15. Non Stress Test [RC] PER UNIT ROUTINE. Vital Signs [RC] PER UNIT ROUTINE. Lactated Ringers [Ringers, Lactated] 1,000 ml IV ASDIRECTED. 12/06/17 01:46. Monitoring [RC] CONTINUOUS. 12/06/17 01:47. Resuscitation Status Routine. 12/06/17 02:00. TYPE AND SCREEN [BBK] Stat. 12/06/17 02:30. Patient Status [ADT] Routine. Activity as Tolerated [RC] PFP. Communication Order [RC] ASDIRECTED. Heart Tones [RC] ASDIRECTED. Notify Provider [RC ] PFP. Notify Provider [RC] PRN. Peripheral IV Care [RC] . DIRECTED. Vital Signs [RC] PER UNIT ROUTINE. Nalbuphine [Nubain] 10 mg IVPUSH Q2H PRN. Ondansetron [Zofran] 4 mg IVPUSH Q4H PRN. Oxytocin/Lactated Ringers [Pitocin in LR 10 Units/1,000 ML] 10 unit in 1,000 ml IV .CONTINUOUS. Sodium Chloride 0.9% [Saline Flush] 10 ml FLUSH ASDIRECTED PRN. Electronic Heart Tones Ext w TOCO [WOMSER] Routine. Electronic Heart Tones Internal [WOMSER] Per Unit Routine. Peripheral IV Insertion Adult [OM.PC] Routine. 12/06/17 Breakfast. Regular Diet [DIET] - Discharge Data Discharge Date: 12/07/17 Discharge Disposition: Home, Self-Care 01 Condition: Good - Discharge Diagnosis/Problem(s) (1) 38 weeks gestation of SNOMED Code(s): 68960127 ICD Code: Z3A.38 - 38 WEEKS GESTATION OF Status: Acute Current Visit: Yes (2) Delivery normal SNOMED Code(s): 77227630 ICD Code: O80 - ENCOUNTER FOR FULL-TERM UNCOMPLICATED DELIVERY; Z37.9 - OUTCOME OF DELIVERY, UNSPECIFIED Status: Acute Current Visit: Yes (3) Marginal insertion of umbilical cord affecting management of mother in third trimester SNOMED Code(s): 51342905, 49827971 ICD Code: O43.193 - OTHER MALFORMATION OF PLACENTA, THIRD TRIMESTER Status : Acute Current Visit: Yes - Patient Summary/Data Complications: None Consults: None - Patient Instructions Diet: Regular Diet as Tolerated Driving: Do Not Drive (48 hours) Showering/Bathing: May Shower, No Tub Bathing/Swimming (For 6 weeks) Notify Provider of: Fever, Increased Pain, Swelling and Redness, Drainage, Nausea and/or Vomiting - Discharge Plan Home Medications: Home Meds Vit No.129/Iron/FA [ One Daily Tablet] 1 each PO DAILY [History] Acetaminophen [Tylenol] 650 mg PO Q4H PRN tablet 12/07/17 [Rx] Docusate Sodium [Colace] 100 mg PO BID PRN cap 12/07/17 [Rx] Ibuprofen [IJD: Ibuprofen] 600 mg PO Q4H PRN tablet 12/07/17 [Rx] Lanolin [Lansinoh HPA] 1 applic TOP ASDIRECTED PRN tube 12/07/17 [Rx] Referrals: Trever Russ MD [Primary Care Provider] - (Patient to make appt to see me Sunday12/18/17) - Discharge Summary/Plan Comment DC Time >30 min.: No - Patient Data Vitals - Most Recent: Last Vital Signs Temp 97.3 F 12/07/17 05:35 Pulse 64 12/07/17 05:35 Resp 18 12/07/17 05:35 BP 103/55 L 12/07/17 05:35 Pulse Ox 98 12/07/17 05:35 Weight - Most Recent: 194 lb I&O - Last 24 hours: Intake & Output 12/06/17 12/07/17 12/07/17 22:59 06:59 14:59 Intake Total 420 Balance 420 Lab Results - Last 24 hrs: Laboratory Results - last 24 hr 12/07/17 Range/Units 06:30 WBC 9.56 (3.98-10.04) K/mm3 RBC 4.47 (3.98-5.22) M/mm3 Hgb 12.2 (11.2-15.7) gm/L Hct 36.9 (34.1-44.9) % MCV 82.6 (79.4-94.8) fl MCH 27.3 (25.6-32.2) pg MCHC 33.1 (32.2-35.5) g/dl RDW Std Deviation 41.4 (36.4-46.3) fL Plt Count 255 (182-369) K/mm3 MPV 10.5 (9.4-12.3) fl Neut % (Auto) 58.7 (34.0-71.1) % Lymph % (Auto) 32.4 (19.3-51.7) % [place] % (Auto) 7.4 (4.7-12.5) % Eos % (Auto) 1.2 (0.7-5.8) Baso % (Auto) 0.1 (0.1-1.2) % Neut # (Auto) 5.61 (1.56-6.13) K/mm3 Lymph # (Auto) 3.10 (1.18-3.74) K/mm3 [place] # (Auto) 0.71 H (0.24-0.36) K/mm3 Eos # (Auto) 0.11 (0.04-0.36) K/mm3 Baso # (Auto) 0.01 (0.01-0.08) K/mm3 Med Orders - Current: Current Medications Acetaminophen (Tylenol) 650 mg PO Q4H PRN PRN Reason: mild pain or fever Benzocaine/Menthol (Dermoplast Pain Relief [place]) 0 gm TOP ASDIRECTED PRN PRN Reason: Perineal Comfort Measure Docusate Sodium (Colace) 100 mg PO BID PRN PRN Reason: Constipation Emollient Ointment (Lansinoh Hpa) 0 gm TOP ASDIRECTED PRN PRN Reason: Sore Nipples Ibuprofen (Motrin) 600 mg PO Q4H PRN PRN Reason: Mild pain or fever Last Admin: 12/06/17 21:09 Dose: 600 mg Witch Cecily (Tucks) 1 pad TOP ASDIRECTED PRN PRN Reason: Hemorrhoid pain Discontinued Medications Lactated Ringer's (Ringers, Lactated) 1,000 mls @ 125 mls/hr IV ASDIRECTED TRACY Last Admin: 12/06/17 00:30 Dose: 125 mls/hr Oxytocin/Lactated Ringer's (Pitocin In Lr 10 Units/1,000 Ml) 10 unit in 1,000 mls @ 500 mls/hr IV .CONTINUOUS TRACY Last Admin: 12/06/17 04:30 Dose: 500 mls/hr Lidocaine HCl (Xylocaine 1%) 50 ml INJECT ONETIME ONE Stop: 12/06/17 02:31 Last Admin: 12/06/17 13:53 Dose: Not Given Nalbuphine HCl (Nubain) 10 mg IVPUSH Q2H PRN PRN Reason: Pain (moderate 4-6) Ondansetron HCl (Zofran) 4 mg IVPUSH Q4H PRN PRN Reason: Nausea/Vomiting Sodium Chloride (Saline Flush) 10 ml FLUSH ASDIRECTED PRN PRN Reason: Keep Vein Open *Q Meaningful Use (DIS) - VTE *Q VTE Criteria *Q: - Stroke *Q Stroke Criteria *Q: - AMI *Q AMI Criteria *Q:
== END 2017-12-07 12:30 | disposition home or self-care (01) | DRG 560 ==
LOC: JD.OBCHECK 00:10 → JD.OB 00:12 → JD.OBCHECK 02:30 → JD.OB 02:36 → OBSVTOIN 03:12 → JD.OB 03:15 → JD.MS 03:56 → JD.OB 09:30
PROVIDERS: ADMIT Obstetrics & Gynecology; ATTEND Obstetrics & Gynecology
PROC: 10E0XZZ Delivery of Products of Conception, External Approach (ICD-10-PCS; principal; 2017-12-06)
PROC: 10907ZC Drainage of Amniotic Fluid, Therapeutic from Products of Conception, Via Natural or Artificial Opening (ICD-10-PCS; 2017-12-06)
DX: O75.89 Other specified complications of labor and delivery (principal); Z3A.39 39 weeks gestation of pregnancy; Z37.0 Single live birth; K21.9 Gastro-esophageal reflux disease without esophagitis
CPT/HCPCS: 36415; 59409; 85025; 86850; 86900; 86901; A9270-GY; J2590; J7120

== ENCOUNTER 2019-01-08 13:49 | Inpatient (IN) | payer BC ==
[2019-01-08] MEDS ORDERED: Acetaminophen 325 MG Tab PO PRN (15:11)
[2019-01-08] MEDS ORDERED: Nalbuphine 20 MG/ML 1 ML Syringe IVPUSH PRN (15:11)
[2019-01-08] MEDS ORDERED: Ondansetron 4 MG/2 ML SDV IVPUSH PRN (15:11)
[2019-01-08] MEDS ORDERED: Sodium Chloride 0.9% 10 ML Syringe FLUSH PRN (15:11)
--- NOTE | 2019-01-08 15:13 | PCM.LDHP ---
<Vincent Barfield - Last Filed: 01/08/19 17:50> L&D History of Present Illness - General Date of Service: 01/08/19 Admit Problem/Dx: Patient Status Order with Admit Dx/Problem 01/08/19 14:12 Patient Status [ADT] Routine Admission Diagnosis/Problem Admission Diagnosis/Problem ultrasound scan abnormal 01/08/19 15:10 Induction of labor Source of Information: Patient History Limitations: Reports: No Limitations - History of Present Illness Introduction:: Teto is a 33 year old -Finnish female who presents today for induction of labor. She is with an BERRY of 01/13/2019, currently at estimated gestational age of 39 2/. Her has been complicated constipation, but resolved with medications. She is GBS negative. She is blood type A+. She had a late start to care and was first seen at 4 months gestation. Reason for induction today was non-reassuring BPP with a score of 2/ 8 points (0 breathing, 0 tone, 2 movement, 2 JUNI 11cm), HR 146. S-D ratios were 2.3-2.6. Currently she is having contractions that last from a few seconds to a few minutes, but has not been keeping track on the intervals but states that it is several times in an hour. Past medical history: She admits to having sickle cell trait. She denies history of other significant medical problems including; cardiac problems, diabetes, thyroid disorders, stroke, seizure, cancer or respiratory disease. Medications: Colace 100mg PRN vitamins Allergies: She denies allergies. Past surgical history: She denies any surgical history. Family history: She states no family history of stroke, seizure, diabetes, thyroid disorder, cardiovascular, bleeding disorders, cancer or respiratory disease. Her father in [facility], [place] from an unknown illness at 56yo. All that is known is that he was seen for a headache and did not survive hospitalization. Her mother is alive and well at 64yo. She has two brothers 31yo and 26yo who are alive and well. She has one sister 29yo who is alive and well. She has two daughters 5yo and 1yo alive and well. She states all grandparents are but does not know ages or causes. Social history: She lives in an apartment in [place] with her family and . She states that she is safe at home and there are no pets. She denies any tobacco use of any kind, also denies alcohol use during or before . She denies any illicit or prescription drug abuse. She denies travel outside the country in the past year and has no prior history. Review of systems: General: denies fevers, chills, malaise, fatigue and admits to weight gain as related to . Skin: denies itching, dryness, sores, rashes or lesions. Head: denies trauma, headache, dizziness or vertigo, and concussion. Eyes: wears glasses for correction- last exam was one year ago, denies redness, tearing, eye pain, diplopia, vision changes or excessive tears. Ears: states hearing is good, denies tinnitus, discharge. Nose: denies sneezing, discharge, epistaxis, sinus congestion or pressure and rhinorrhea. Mouth/ throat: denies odynophagia, sores, dental pain or voice change. Last dental exam was "a long time ago, don't remember." Neck: denies loss of ROM or strength. Denies lumps or masses. Cardiac: Denies any history of hypertension, murmur, cardiac disease, orthopnea , chest pain or palpitations. Respiratory: Denies history of shortness of breath, cough, sputum, hemoptysis, asthma. Also denies any history of tuberculosis or history of exposure. GI: Denies changes in appetite, jaundice, abdominal pain, nausea/ vomiting, dysphagia. Admits to previous history of painful bowel movements, but has since resolved on stool softener. : Admits to recent mucus like discharge without blood, that had been slightly increasing in the past several days. Admits to increase in frequency related to . Denies history of STD's or UTI's, hematuria. OBGYN: Has had two previous pregnancies without complications both were . 1st child born at 37 weeks, 2nd at 38-39 weeks. She states no previous miscarriages or abortions. LMP: approximately April. Menarche: 14yo. States the menstruation has rarely been regular. She states that after her first cycle they have been irregularly irregular and that she can seldom predict the time of her period or the length. She states that sometimes she does menstruate during a cycle. When a menstruation does occur they most commonly are 3-7 days with heaviest bleeding on the first 3 days. She was previously seen at a younger age about this and was put on some medication but does not remember the name. MSK: denies any previous history of fracture/ dislocations, denies loss of strength or ROM, denies any joint pain, swelling or erythema. Neurological: Denies loss of sensation, weakness or seizures. Endocrine: denies history of diabetes or thyroid disorder, heat or cold intolerance, polydipsia. Psychiatric: denies mood changes, depression, anxiety, admits to some sleep changes with . Physical Exam: General: Well appearing, well nourished female. Vitals: 126/73, HR: 86, RR: 16, temp:98.6F Skin: no rashes, lesions, bruising, skin is dry and intact HEENT: head is normocephalic. Eyes are PERRL, no scleral icterus or conjunctival injection, EOM intact. Ears have bilateral symmetry, with gross auditory function intact, nose is midline without sinus tenderness. Mouth has no sores or lesions, good oral hygiene, no tonsillar exudate. Neck: supple with trachea midline. Heart: regular rate and rhythm, no murmur, rubs or gallop. Lung: clear, equal and bilateral to auscultation, equal chest rise, no increased work of breathing. Abdomen: + bowel sound in all quadrants, gravid, nontender to palpation. MSK: no weakness or gross deformity to extremities. Neurological: CN2-12 grossly intact. Assessment: Teto is a 33yo F who present at 39 2/7 weeks with a non reassuring BPP on 01/08 with a score of 2/8. This has been followed closely with repeat BPP and ultrasounds. She started late with care at approximally 4 months gestation. At this time she is resting comfortably and has no complaints. Plan: 1. Induction of labor with artificial rupture of membranes and potentially augmented with pitocin if needed. 2. Blood type A+, no requirement for rhogam 3. Group B strep negative, no requirement for antibiotics. 4. Patient declines epidural for pain. - Related Data Allergies/Adverse Reactions: Allergies Allergy/AdvReac Type Severity Reaction Status Date / Time No Known Allergies Allergy Verified 11/25/18 15:26 Home Medications: Home Meds Vit No.129/Iron/FA [ One Daily Tablet] 1 each PO DAILY [History] Past Medical History - Past Health History Medical/Surgical History: Denies Medical/Surgical History HEENT History: Reports: Impaired Vision Cardiovascular History: Reports: None Respiratory History: Reports: None Gastrointestinal History: Reports: GERD Genitourinary History: Reports: Renal Calculus [employer] History: Reports: () : 3 Para: 2 Other OB/BYN History: x2 Musculoskeletal History: Reports: None Neurological History: Reports: None Psychiatric History: Reports: None Endocrine/Metabolic History: Reports: None Hematologic History: Reports: Other (See Below) (Sickle cell trait (As)) Immunologic History: Reports: None Oncologic (Cancer) History: Reports: None Dermatologic History: Reports: None - Past Surgical History Head Surgeries/Procedures: Reports: None HEENT Surgical History: Reports: None Cardiovascular Surgical History: Reports: None Respiratory Surgical History: Reports: None GI Surgical History: Reports: None Female Surgical History: Reports: None Endocrine Surgical History: Reports: None Neurological Surgical History: Reports: None Musculoskeletal Surgical History: Reports: None Oncologic Surgical History: Reports: None Dermatological Surgical History: Reports: None Social & Family History - Family History Family Medical History: Noncontributory Cardiac: Reports: None Respiratory: Reports: None GI: Reports: None : Reports: None OBGYN: Reports: None Musculoskeletal: Reports: None Neurological: Reports: None Psychiatric: Reports: None Endocrine/Metabolic: Reports: None Other Family History: Father passed at 56 in [facility] from unknown cause. Was originally seen for headache. Mother is alive and well at 64. One sister 29 alive and well. Two brothers 31 and 26 alive and well. Two daughters 5 and 1 alive and well. - Tobacco Use Smoking Status *Q: Never Smoker - Tobacco Core Measures Tobacco Use/Smoking Within Last 30 Days: No Smoking Frequency Within Last 30 Days: Reports: None Smokeless Tobacco Use in Last 30 Days: No - Caffeine Use Caffeine Use: Reports: None, Tea - Alcohol Use Alcohol Use History: No - Recreational Drug Use Recreational Drug Use: No Drug Use in Last 12 Months: No - Living Situation & Occupation Living situation: Reports: , with Family (In apartment in [place]) H&P Review of Systems - Review of Systems: Review Of Systems: See Below General: Reports: No Symptoms, Weight Gain (only related) HEENT: Reports: Glasses Pulmonary: Reports: No Symptoms Cardiovascular: Reports: No Symptoms Gastrointestinal: Reports: No Symptoms Genitourinary: Reports: No Symptoms, Discharge (mucus discharge in past week) Musculoskeletal: Reports: No Symptoms Skin: Reports: No Symptoms Psychiatric: Reports: No Symptoms Neurological: Reports: No Symptoms Hematologic/Lymphatic: Reports: No Symptoms Immunologic: Reports: No Symptoms L&D Exam - Exam Exam: See Below - Vital Signs Vital Signs: Temp 98.6F BP: 126/73 HR: 86 RR:16 Weight: 91.285 kg - OB Specific Heart Tones per Min: 140 - Exam General: Alert, Oriented, Cooperative HEENT: Conjunctiva Clear, EOMI, Hearing Intact, Mucosa Moist & [place], Nares Patent, Normal Nasal Septum, Posterior Pharynx Clear, Pupils Equal, Pupils Reactive, Glasses Neck: Supple, Trachea Midline Lungs: Clear to Auscultation, Normal Respiratory Effort Cardiovascular: Regular Rate, Regular Rhythm, Normal S1, Normal S2 GI/Abdominal Exam: Normal Bowel Sounds, Other (gravid) Back Exam: Normal Inspection, Full Range of Motion Extremities: Normal Inspection, Normal Range of Motion, Non-Tender Skin: Warm, Dry, Intact Neurological: Cranial Nerves Intact Psychiatric: Alert, Normal Affect, Normal Mood - Patient Data Result Diagrams: 01/08/19 15:45 Problem List Initiated/Reviewed/Updated: Yes Orders Last 24hrs: Active Orders 24 hr Category Date Time Status Patient Status Manage Transfer [TRANSFER] Routine ADT 01/08/19 15:06 Active Patient Status [ADT] Routine ADT 01/08/19 14:12 Active Non Stress Test [RC] PER UNIT ROUTINE Care 01/08/19 14:12 Active Up ad Zulema [RC] ASDIRECTED Care 01/08/19 14:13 Active Vaginal Exam [RC] PRN Care 01/08/19 14:13 Active Vital Signs [RC] PER UNIT ROUTINE Care 01/08/19 14:12 Active Regular Diet [DIET] Diet 01/08/19 Lunch Active Resuscitation Status Routine Resus Stat 01/08/19 14:12 Ordered <Lee Null - Last Filed: 01/08/19 18:02> L&D History of Present Illness - General Admit Problem/Dx: Admission Diagnosis/Problem Admission Diagnosis/Problem ultrasound scan abnormal L&D Exam - Vital Signs Vital Signs: Last Vital Signs Temp 36.7 C 01/08/19 15:11 Pulse 86 01/08/19 15:11 Resp 18 01/08/19 15:11 BP 126/73 01/08/19 15:11 Pulse Ox - OB Specific Contraction Duration (sec): 60 Contraction Frequency (min): Irregular Contraction Intensity: Mild to Moderate Movement: Active Heart Tones: Present Heart Rate (FHR) Variability: Moderate (6-25 bmp) (+15 x 15 accelerations , occasional decelerations of uncertain type, unrelated to contractions) Presentation: Vertex Estimated Weight: 2994 g (6 lbs. 10 oz.) (13th percentile) by ultrasound today - Kelly Score Kelly Score Cervix Position: Midposition Kelly Score Consistency: Soft Kelly Score Effacement: 31-50% (50%) Kelly Score Dilation: 1-2 cm (2 cm) Kelly Score 's Station: -3 (-4) Kelly Score Total: 5 - Exam Genitourinary: Other (Artificial rupture membranes attempted on initial exam but unsuccessful with Amnihook.) - Patient Data Lab Results Last 24 hrs: Laboratory Results - last 24 hr 01/08/19 01/08/19 Range/Units 15:45 15:45 WBC 7.81 (3.98-10.04) K/mm3 RBC 4.60 (3.98-5.22) M/mm3 Hgb 13.1 (11.2-15.7) gm/L Hct 39.1 (34.1-44.9) % MCV 85.0 (79.4-94.8) fl MCH 28.5 (25.6-32.2) pg MCHC 33.5 (32.2-35.5) g/dl RDW Std Deviation 45.8 (36.4-46.3) fL Plt Count 239 (182-369) K/mm3 MPV 11.0 (9.4-12.3) fl Neut % (Auto) 67.5 (34.0-71.1) % Lymph % (Auto) 24.3 (19.3-51.7) % [place] % (Auto) 7.0 (4.7-12.5) % Eos % (Auto) 0.8 (0.7-5.8) Baso % (Auto) 0.1 (0.1-1.2) % Neut # (Auto) 5.27 (1.56-6.13) K/mm3 Lymph # (Auto) 1.90 (1.18-3.74) K/mm3 [place] # (Auto) 0.55 H (0.24-0.36) K/mm3 Eos # (Auto) 0.06 (0.04-0.36) K/mm3 Baso # (Auto) 0.01 (0.01-0.08) K/mm3 Blood Type A POSITIVE Gel Antibody Screen Negative Result Diagrams: 01/08/19 15:45 - Problem List (1) 39 weeks gestation of SNOMED Code(s): 46921863 ICD Code: Z3A.39 - 39 WEEKS GESTATION OF Status: Acute Current Visit: Yes (2) Sickle cell trait SNOMED Code(s): 01194805 ICD Code: D57.3 - SICKLE-CELL TRAIT Status: Acute Current Visit: Yes (3) Abnormal test SNOMED Code(s): 295269207 ICD Code: O28.9 - UNSP ABNORMAL FINDINGS ON SCREENING OF MOTHER Status: Acute Current Visit: Yes Problem List Initiated/Reviewed/Updated: Yes Orders Last 24hrs: Active Orders 24 hr Category Date Time Status Activity as Tolerated [RC] PFP Care 01/08/19 15:11 Active Communication Order [RC] ASDIRECTED Care 01/08/19 15:11 Active Heart Tones [RC] ASDIRECTED Care 01/08/19 15:11 Active Non Stress Test [RC] PER UNIT ROUTINE Care 01/08/19 14:12 Inactive Non Stress Test [RC] PER UNIT ROUTINE Care 01/08/19 15:11 Active Notify Provider Vital Signs [RC] PRN Care 01/08/19 15:11 Active Notify Provider [RC] PFP Care 01/08/19 15:11 Active Notify Provider [RC] PRN Care 01/08/19 15:11 Active Peripheral IV Care [RC] . DIRECTED Care 01/08/19 15:11 Active Up ad Zulema [RC] ASDIRECTED Care 01/08/19 14:13 Inactive Vaginal Exam [RC] PRN Care 01/08/19 14:13 Inactive Vital Signs [RC] PER UNIT ROUTINE Care 01/08/19 14:12 Inactive Vital Signs [RC] PER UNIT ROUTINE Care 01/08/19 15:11 Active Regular Diet [DIET] Diet 01/08/19 Lunch Active RAPID PLASMA REAGIN,RPR [CHEM] Routine Lab 01/08/19 15:45 Received Acetaminophen [Tylenol] Med 01/08/19 15:11 Active 650 mg PO Q6H PRN Lactated Ringers [Ringers, Lactated] 1,000 ml Med 01/08/19 15:15 Active IV ASDIRECTED Nalbuphine [Nubain] Med 01/08/19 15:11 Active 10 mg IVPUSH Q2H PRN Ondansetron [Zofran] Med 01/08/19 15:11 Active 4 mg IVPUSH Q4H PRN Oxytocin/Lactated Ringers [Pitocin in LR 10 Units/1,000 Med 01/08/19 15:15 Active ML] 10 unit in 1,000 ml IV .CONTINUOUS Oxytocin/Lactated Ringers [Pitocin in LR 10 Units/1,000 Med 01/08/19 17:30 Active ML] 10 unit in 1,000 ml IV TITRATE Sodium Chloride 0.9% [Saline Flush] Med 01/08/19 15:11 Active 10 ml FLUSH ASDIRECTED PRN Electronic Heart Tones Ext w TOCO [WOMSER] Oth 01/08/19 15:11 Ordered Routine Electronic Heart Tones Internal [WOMSER] Per Unit Oth 01/08/19 15:11 Ordered Routine Peripheral IV Insertion Adult [OM.PC] Routine Oth 01/08/19 15:11 Ordered Resuscitation Status Routine Resus Stat 01/08/19 14:12 Ordered Medication Orders Acetaminophen (Tylenol) 650 mg PO Q6H PRN PRN Reason: Pain (Mild 1-3) and fever Lactated Ringer's (Ringers, Lactated) 1,000 mls @ 100 mls/hr IV ASDIRECTED TRACY Last Admin: 01/08/19 17:15 Dose: 100 mls/hr Oxytocin/Lactated Ringer's (Pitocin In Lr 10 Units/1,000 Ml) 10 unit in 1,000 mls @ 100 mls/hr IV .CONTINUOUS TRACY; Protocol Oxytocin/Lactated Ringer's (Pitocin In Lr 10 Units/1,000 Ml) 10 unit in 1,000 mls @ 12 mls/hr IV TITRATE TRACY; Protocol Last Admin: 01/08/19 17:15 Dose: 2 munits/min, 12 mls/hr Nalbuphine HCl (Nubain) 10 mg IVPUSH Q2H PRN PRN Reason: pain Ondansetron HCl (Zofran) 4 mg IVPUSH Q4H PRN PRN Reason: Nausea/Vomiting Sodium Chloride (Saline Flush) 10 ml FLUSH ASDIRECTED PRN PRN Reason: Keep Vein Open Assessment/Plan Comment:: I have seen and evaluated the patient with the PA student and agree with the note as written with the exception of the note should say the BPP had a score of 2/8. Points were taken off for no breathing, poor tone and only one movement not meeting criteria for passing the movement portion of the test. Only normal portion was JUNI of 11 cm. Plan for induction of labor as per below. Refer to observation for medical induction of labor in the setting of abnormal BPP with a score of 2/8. Only points were given were for normal JUNI of 11 cm. Attempt was made for artificial rupture of membranes on initial cervical exam that unable to rupture membranes. Cervix was 2/50/-4/soft/mid position. Start Pitocin for induction of labor Continuous monitoring Place IV and have Lactated Ringer's at 125 ml/hr May have small amounts of regular diet Activity as tolerated May have epidural as desired Plans to breast-feed after delivery Anticipate vaginal delivery unless otherwise indicated Lee Null M.D. 5:57 PM 01/08/2019
[2019-01-08] MEDS ORDERED: Lactated Ringers 1,000 ML IV SCH (15:15)
[2019-01-08] MEDS ORDERED: Oxytocin/Lactated Ringers 10 UNIT/1,000 ML BAG IV SCH ×2 (15:15→17:30)
--- NOTE | 2019-01-08 20:52 | PCM.PNLD ---
Labor Progress Note - VS & Meds Vital Signs: Last Vital Signs Temp 36.7 C 01/08/19 15:11 Pulse 86 01/08/19 15:11 Resp 18 01/08/19 15:11 BP 126/73 01/08/19 15:11 Pulse Ox Active Medications: Current Medications Acetaminophen (Tylenol) 650 mg PO Q6H PRN PRN Reason: Pain (Mild 1-3) and fever Lactated Ringer's (Ringers, Lactated) 1,000 mls @ 100 mls/hr IV ASDIRECTED TRACY Last Admin: 01/08/19 17:15 Dose: 100 mls/hr Oxytocin/Lactated Ringer's (Pitocin In Lr 10 Units/1,000 Ml) 10 unit in 1,000 mls @ 100 mls/hr IV .CONTINUOUS TRACY; Protocol Oxytocin/Lactated Ringer's (Pitocin In Lr 10 Units/1,000 Ml) 10 unit in 1,000 mls @ 12 mls/hr IV TITRATE TRACY; Protocol Last Titration: 01/08/19 20:06 Dose: 6 munits/min, 36 mls/hr Nalbuphine HCl (Nubain) 10 mg IVPUSH Q2H PRN PRN Reason: pain Ondansetron HCl (Zofran) 4 mg IVPUSH Q4H PRN PRN Reason: Nausea/Vomiting Sodium Chloride (Saline Flush) 10 ml FLUSH ASDIRECTED PRN PRN Reason: Keep Vein Open - Uterine Contractions Contraction Frequency (min): 2-6 Contraction Duration (sec): 60-75 Contraction Intensity: Moderate to Strong Uterine Resting Tone: Soft - Monitoring Monitor Mode: Doppler/Auscultation Heart Rate (FHR) Baseline: 140 Heart Rate (FHR) Variability: Moderate (6-25 bmp) (+15 x 15 accelerations , occasional decelerations of uncertain type, unrelated to contractions) Accelerations: Present, 15x15 Decelerations: None, Variable, Intermittent (<50% x 20 min) Strip Review: Category II - Vaginal Exam Dilation (cm): 4 Effacement (Percent): 60 Station: -3 Cervical Position: Anterior Sterile Vaginal Exam Performed By: Lee Null Vaginal Exam Comment: Artificial rupture membranes with Amnihook performed. Return of clear fluid. Mother and tolerated without complications. - Labor Progress (Free Text) Labor Progress: Patient with slow progress after starting on Pitocin. Contractions are getting more consistent and increasing in intensity. Continue Pitocin at current rate without changes for approximately 60 minutes to see if artificial rupture membranes increases contraction frequency and intensity. Continue close monitoring of infant with BPP of 2/8 earlier today. Continue to monitor vital signs Anticipate vaginal delivery unless otherwise indicated. Lee Null M.D. 8:51 PM 01/08/2019
[2019-01-08] MEDS ORDERED: Lidocaine 1% 50 ML MDV ONE (23:40)
--- NOTE | 2019-01-09 00:14 | PCM.DEL ---
L & D Note - General Info Date of Service: 01/08/19 Mother's Due Date: 01/13/19 - Delivery Note Labor: Augmented by ARM, Augmented by Oxytocin Delivery Outcome: Livebirth Delivery Method: Spontaneous Vaginal Delivery-Single Presentation: Right Occiput Anterior (JOSEPH) Nuchal Cord: None Anesthesia Type: Local Anesthetic: Lidocaine (Xylocaine) 1% Plain Local Anesthetic Volume: Other (15 mL) Episiotomy Type: None Laceration: 2nd Degree, Perineal (midline, repaired with 3-0 Vicryl) Placenta: Intact, Spontaneous Cord: 3 Vessels Estimated Blood Loss: 350 Resuscitation Needed: No [place]: Bulb Syringe, Cathether, Stimulated, Warmed, [place] Used Provider: Lee Null Score 1 min: 7 Score 5 min: 9 Second Stage Interventions: Reports: Pushing Ineffectively, Pushing Involuntarily, Pushing, Knee Chest Position, Pushing, Pulls Own Legs Back Delivery Comments (Free Text/Narrative):: Stage I: Teto Vega was admitted for medical induction of labor following a biophysical profile that was low with a score of 2/8. The only points were given were for normal JUNI of 11 cm. Her initial monitoring had a baseline of 140s with moderate variability but did not have any accelerations. Discussion was had with patient given this abnormal testing that I would recommend for induction of labor in patient desired to proceed with induction. On admission her cervix was dilated to 2 cm an attempt was made for artificial rupture membranes but was unsuccessful. She was GBS negative. She was started on Pitocin for induction of labor. She progressed to 4 cm dilated and had an artificial rupture membranes with clear fluid. She was continued on Pitocin for augmentation of labor and progressed to complete and pushing. Stage II: On 01/08/2019 she had a normal vaginal delivery of a live female infant at 2331. Apgars of 7 & 9. Weight of 3190 g (7 lbs 0.5 oz). Length of 20.5 inches. There was no nuchal cord. Infant was delivered in JOSEPH position. The cord was doubly clamped and cut by myself. was placed on mother's abdomen. Stage III: She had a spontaneous delivery of an intact placenta in Horace presentation. Three vessel cord. She was given pitocin and fundal massage. She had a second-degree midline laceration that was repaired with 3-0 Vicryl. Mom and baby were stable to recovery. EBL of 350 mL. Lee Null MD 12:14 AM 01/09/2019 Induction Criteria - Kelly Score Kelly Score Dilation: 1-2 cm Kelly Score Effacement: 40-50% Kelly Score Infant's Station: -3 Kelly Score Consistency: Soft Kelly Score Cervix Position: Midposition Kelly Score Total: 5 Kelly Score Presenting Part: Reports: Cephalic - Induction Gestational Age >/= 39 wks: Yes Medical Indication: Abnormal testing with low BPP score of 2/8 and nonreactive NST Estimated Pelvis: Reports: Adequate Reassuring Monitoring Strip: Yes Absence of Tachy Systole: Yes - Augmentation Estimated Pelvis: Reports: Adequate Weight Estimated:: Reports: AGA Reassuring Monitoring Strip: Yes Absence of Tachy Systole: Yes - General Info Date of Service: 01/08/19 - Patient Data Vitals - Most Recent: Last Vital Signs Temp 36.7 C 01/08/19 15:11 Pulse 86 01/08/19 15:11 Resp 18 01/08/19 15:11 BP 126/73 01/08/19 15:11 Pulse Ox Weight - Most Recent: 91.285 kg Lab Results Last 24 Hours: Laboratory Results - last 24 hr 01/08/19 01/08/19 01/08/19 Range/Units 15:45 15:45 15:45 WBC 7.81 (3.98-10.04) K/mm3 RBC 4.60 (3.98-5.22) M/mm3 Hgb 13.1 (11.2-15.7) gm/L Hct 39.1 (34.1-44.9) % MCV 85.0 (79.4-94.8) fl MCH 28.5 (25.6-32.2) pg MCHC 33.5 (32.2-35.5) g/dl RDW Std Deviation 45.8 (36.4-46.3) fL Plt Count 239 (182-369) K/mm3 MPV 11.0 (9.4-12.3) fl Neut % (Auto) 67.5 (34.0-71.1) % Lymph % (Auto) 24.3 (19.3-51.7) % [place] % (Auto) 7.0 (4.7-12.5) % Eos % (Auto) 0.8 (0.7-5.8) Baso % (Auto) 0.1 (0.1-1.2) % Neut # (Auto) 5.27 (1.56-6.13) K/mm3 Lymph # (Auto) 1.90 (1.18-3.74) K/mm3 [place] # (Auto) 0.55 H (0.24-0.36) K/mm3 Eos # (Auto) 0.06 (0.04-0.36) K/mm3 Baso # (Auto) 0.01 (0.01-0.08) K/mm3 RPR Non-reactive (NONREACTIVE) Blood Type A POSITIVE Gel Antibody Screen Negative Med Orders - Current: Current Medications Acetaminophen (Tylenol) 650 mg PO Q6H PRN PRN Reason: Pain (Mild 1-3) and fever Lactated Ringer's (Ringers, Lactated) 1,000 mls @ 100 mls/hr IV ASDIRECTED TRACY Last Admin: 01/08/19 17:15 Dose: 100 mls/hr Oxytocin/Lactated Ringer's (Pitocin In Lr 10 Units/1,000 Ml) 10 unit in 1,000 mls @ 100 mls/hr IV .CONTINUOUS TRACY; Protocol Oxytocin/Lactated Ringer's (Pitocin In Lr 10 Units/1,000 Ml) 10 unit in 1,000 mls @ 12 mls/hr IV TITRATE TRACY; Protocol Last Titration: 01/08/19 20:06 Dose: 6 munits/min, 36 mls/hr Nalbuphine HCl (Nubain) 10 mg IVPUSH Q2H PRN PRN Reason: pain Ondansetron HCl (Zofran) 4 mg IVPUSH Q4H PRN PRN Reason: Nausea/Vomiting Sodium Chloride (Saline Flush) 10 ml FLUSH ASDIRECTED PRN PRN Reason: Keep Vein Open Discontinued Medications Lidocaine HCl (Xylocaine 1%) Confirm Administered Dose 50 ml .ROUTE .STK-MED ONE Stop: 01/08/19 23:41 Last Admin: 01/08/19 23:52 Dose: 50 ml - Problem List & Annotations (1) 39 weeks gestation of SNOMED Code(s): 75853752 Code(s): Z3A.39 - 39 WEEKS GESTATION OF Status: Acute Current Visit: Yes (2) Sickle cell trait SNOMED Code(s): 79273068 Code(s): D57.3 - SICKLE-CELL TRAIT Status: Acute Current Visit: Yes (3) Abnormal test SNOMED Code(s): 416967674 Code(s): O28.9 - UNSP ABNORMAL FINDINGS ON SCREENING OF MOTHER Status: Acute Current Visit: Yes (4) Vaginal delivery SNOMED Code(s): 172149169 Code(s): O80 - ENCOUNTER FOR FULL-TERM UNCOMPLICATED DELIVERY Status: Acute Current Visit: Yes (5) Second degree perineal laceration during delivery SNOMED Code(s): 5936398 Code(s): O70.1 - SECOND DEGREE PERINEAL LACERATION DURING DELIVERY Status: Acute Current Visit: Yes - Problem List Review Problem List Initiated/Reviewed/Updated: Yes - My Orders Last 24 Hours: My Active Orders 01/08/19 14:12 Non Stress Test [RC] PER UNIT ROUTINE Vital Signs [RC] PER UNIT ROUTINE Resuscitation Status Routine 01/08/19 14:13 Up ad [place] [RC] ASDIRECTED Vaginal Exam [RC] PRN 01/08/19 15:11 Activity as Tolerated [RC] PFP Communication Order [RC] ASDIRECTED Heart Tones [RC] ASDIRECTED Non Stress Test [RC] PER UNIT ROUTINE Notify Provider Vital Signs [RC] PRN Notify Provider [RC] PFP Notify Provider [RC] PRN Peripheral IV Care [RC] . DIRECTED Vital Signs [RC] PER UNIT ROUTINE Acetaminophen [Tylenol] 650 mg PO Q6H PRN Nalbuphine [Nubain] 10 mg IVPUSH Q2H PRN Ondansetron [Zofran] 4 mg IVPUSH Q4H PRN Sodium Chloride 0.9% [Saline Flush] 10 ml FLUSH ASDIRECTED PRN Electronic Heart Tones Ext w TOCO [WOMSER] Routine Electronic Heart Tones Internal [WOMSER] Per Unit Routine Peripheral IV Insertion Adult [OM.PC] Routine 01/08/19 15:15 Lactated Ringers [Ringers, Lactated] 1,000 ml IV ASDIRECTED Oxytocin/Lactated Ringers [Pitocin in LR 10 Units/1,000 ML] 10 unit in 1,000 ml IV .CONTINUOUS 01/08/19 17:30 Oxytocin/Lactated Ringers [Pitocin in LR 10 Units/1,000 ML] 10 unit in 1,000 ml IV TITRATE 01/08/19 Lunch Regular Diet [DIET] - Plan Plan:: Admit to inpatient following normal spontaneous vaginal delivery Continue Pitocin per unit protocol following delivery of placenta and lactated Ringer's until tolerating regular diet Regular diet Vitals per unit routine Ibuprofen and Tylenol for pain control Assist with breast and bottlefeeding as needed Continue to monitor lochia Anticipate discharge home on day #2 due to late timing of delivery on the day of delivery Lee Null MD 12:14 AM 01/09/2019
[2019-01-09] MEDS ORDERED: Acetaminophen 325 MG Tab PO PRN (01:11)
[2019-01-09] MEDS ORDERED: Docusate Sodium 100 MG Cap PO PRN (01:11)
[2019-01-09] MEDS ORDERED: Benzocaine/Menthol 20%-0.5% Spray 56 GM Canister TOP PRN (01:11)
[2019-01-09] MEDS ORDERED: Witch Hazel Medicated Pads 40/Jar TOP PRN (01:11)
[2019-01-09] MEDS ORDERED: Hydrocortisone Acetate 25 MG Supp RECTAL PRN (01:11)
[2019-01-09] MEDS ORDERED: Lanolin 100% Cream 7 GM Tube TOP PRN (01:11)
[2019-01-09] MEDS: Ibuprofen 600 MG Tab PO PRN ×2 (01:45→12:44)
[2019-01-09] MEDS: Prenatal Multivitamin with Calcium/Folic Acid/Iron Tab PO SCH (08:08)
--- NOTE | 2019-01-09 08:59 | PCM.SN ---
- Free Text/Narrative Note: Post Progress Note PPD # 1 Subjective: Doing well overall. Ambulating minimally overnight without difficulty. Lochia minimal. Voiding without difficulty. Tolerating regular diet without nausea or vomiting. Pain controlled with oral medications. Breast and bottle feeding with minimal difficulty. Objective: Vitals: Vital Signs - 24 hr 01/08/19 01/09/19 01/09/19 15:11 03:18 08:08 Temperature 37.3 C 37.0 C Temperature [ 36.7 C Temporal] Pulse, 90 84 Peripheral Pulse, 86 Peripheral [ Left] Respiratory 18 16 16 Rate Blood Pressure 101/53 L 97/49 L Blood Pressure 126/73 [Left Arm] O2 Sat by Pulse 96 96 Oximetry Physical Exam General: Alert and oriented, no acute distress Lungs: Clear to auscultation bilaterally Heart: Regular rate and rhythm Abdomen: Soft, minimal appropriate tenderness, non-distended, fundus midline, nontender, and at the umbilicus Extremities: No edema ASSESSMENT: 33-year-old female s/p normal vaginal delivery PPD #1, complicated by sickle cell trait and abnormal testing with BPP score of 2/8 PLAN: Doing well Breast and bottle feeding with minimal difficulty. Assist as needed Lochia minimal. Continue to monitor for appropriate lochia. Continue routine care Anticipate discharge home tomorrow due to late timing of delivery of around 11: 30 PM Lee Null MD 8:58 AM 01/09/2019
[2019-01-10] MEDS: Ibuprofen 600 MG Tab PO PRN ×2 (01:32→14:06)
[2019-01-10 07:46] VITALS: BP 137/69
[2019-01-10] MEDS ORDERED: Magnesium Hydroxide 400 MG/5 ML Susp 30 ML Cup PO ONE (10:16)
--- NOTE | 2019-01-10 10:21 | PCM.SN ---
- Free Text/Narrative Note: Post Progress Note PPD # 2 Subjective: Doing well overall. Ambulating minimally overnight without difficulty. Lochia minimal. Voiding without difficulty. Reports that she is passing gas without difficulty but has not had a bowel movement and is concerned about mild constipation. Tolerating regular diet without nausea or vomiting. Pain controlled with oral medications. Breast and bottle feeding with minimal difficulty. Objective: Vitals: Vital Signs - 24 hr 01/09/19 01/09/19 01/10/19 12:49 21:27 03:52 Temperature 36.7 C 36.7 C 36.7 C Pulse, 76 72 83 Peripheral Respiratory 16 15 15 Rate Blood Pressure 109/60 104/56 L 137/69 O2 Sat by Pulse 95 99 100 Oximetry Physical Exam General: Alert and oriented, no acute distress Lungs: Clear to auscultation bilaterally Heart: Regular rate and rhythm Abdomen: Soft, minimal appropriate tenderness, non-distended, fundus midline, nontender, and at the umbilicus Extremities: No edema ASSESSMENT: 33-year-old female s/p normal vaginal delivery PPD #2, complicated by sickle cell trait and abnormal testing with BPP score of 2/8 PLAN: Doing well Breast and bottle feeding with minimal difficulty. Assist as needed Lochia minimal. Continue to monitor for appropriate lochia. Continue routine care Please give patient Colace and milk of magnesia this morning prior to discharge. Discharge home today Lee Null MD 10:18 AM 01/10/2019
--- NOTE | 2019-01-10 10:29 | PCM.DCSUM1 ---
Discharge Summary - Hospital Course Free Text/Narrative:: - Delivery Note Labor: Augmented by ARM, Augmented by Oxytocin Delivery Outcome: Livebirth Delivery Method: Spontaneous Vaginal Delivery-Single Presentation: Right Occiput Anterior (JOSEPH) Nuchal Cord: None Anesthesia Type: Local Anesthetic: Lidocaine (Xylocaine) 1% Plain Local Anesthetic Volume: Other (15 mL) Episiotomy Type: None Laceration: 2nd Degree, Perineal (midline, repaired with 3-0 Vicryl) Placenta: Intact, Spontaneous Cord: 3 Vessels Estimated Blood Loss: 350 Resuscitation Needed: No : Bulb Syringe, Cathether, Stimulated, Warmed, [place] Used Provider: Lee Null Score 1 min: 7 Score 5 min: 9 Second Stage Interventions: Reports: Pushing Ineffectively, Pushing Involuntarily, Pushing, Knee Chest Position, Pushing, Pulls Own Legs Back Delivery Comments (Free Text/Narrative):: Stage I: Teto Vega was admitted for medical induction of labor following a biophysical profile that was low with a score of 2/8. The only points were given were for normal JUNI of 11 cm. Her initial monitoring had a baseline of 140s with moderate variability but did not have any accelerations. Discussion was had with patient given this abnormal testing that I would recommend for induction of labor in patient desired to proceed with induction. On admission her cervix was dilated to 2 cm an attempt was made for artificial rupture membranes but was unsuccessful. She was GBS negative. She was started on Pitocin for induction of labor. She progressed to 4 cm dilated and had an artificial rupture membranes with clear fluid. She was continued on Pitocin for augmentation of labor and progressed to complete and pushing. Stage II: On 01/08/2019 she had a normal vaginal delivery of a live female at 2331. Apgars of 7 & 9. Weight of 3190 g (7 lbs 0.5 oz). Length of 20.5 inches. There was no nuchal cord. Infant was delivered in JOSEPH position. The cord was doubly clamped and cut by myself. was placed on mother's abdomen. Stage III: She had a spontaneous delivery of an intact placenta in Horace presentation. Three vessel cord. She was given pitocin and fundal massage. She had a second-degree midline laceration that was repaired with 3-0 Vicryl. Mom and baby were stable to recovery. EBL of 350 mL. HPI Initial Comments: - Delivery Note Labor: Augmented by ARM, Augmented by Oxytocin Delivery Outcome: Livebirth Infant Delivery Method: Spontaneous Vaginal Delivery-Single Presentation: Right Occiput Anterior (JOSEPH) Nuchal Cord: None Anesthesia Type: Local Anesthetic: Lidocaine (Xylocaine) 1% Plain Local Anesthetic Volume: Other (15 mL) Episiotomy Type: None Laceration: 2nd Degree, Perineal (midline, repaired with 3-0 Vicryl) Placenta: Intact, Spontaneous Cord: 3 Vessels Estimated Blood Loss: 350 Resuscitation Needed: No : Bulb Syringe, Cathether, Stimulated, Warmed, [place] Used Provider: Lee Null Score 1 min: 7 Score 5 min: 9 Second Stage Interventions: Reports: Pushing Ineffectively, Pushing Involuntarily, Pushing, Knee Chest Position, Pushing, Pulls Own Legs Back Delivery Comments (Free Text/Narrative):: Stage I: Teto Vega was admitted for medical induction of labor following a biophysical profile that was low with a score of 2/8. The only points were given were for normal JUNI of 11 cm. Her initial monitoring had a baseline of 140s with moderate variability but did not have any accelerations. Discussion was had with patient given this abnormal testing that I would recommend for induction of labor in patient desired to proceed with induction. On admission her cervix was dilated to 2 cm an attempt was made for artificial rupture membranes but was unsuccessful. She was GBS negative. She was started on Pitocin for induction of labor. She progressed to 4 cm dilated and had an artificial rupture membranes with clear fluid. She was continued on Pitocin for augmentation of labor and progressed to complete and pushing. Stage II: On 01/08/2019 she had a normal vaginal delivery of a live female infant at 2331. Apgars of 7 & 9. Weight of 3190 g (7 lbs 0.5 oz). Length of 20.5 inches. There was no nuchal cord. Infant was delivered in JOSEPH position. The cord was doubly clamped and cut by myself. Infant was placed on mother's abdomen. Stage III: She had a spontaneous delivery of an intact placenta in Horace presentation. Three vessel cord. She was given pitocin and fundal massage. She had a second-degree midline laceration that was repaired with 3-0 Vicryl. Mom and baby were stable to recovery. EBL of 350 mL. Brief History: - Delivery Note. Labor: Augmented by ARM, Augmented by Oxytocin. Delivery Outcome: Livebirth. Infant Delivery Method: Spontaneous Vaginal Delivery-Single. Presentation: Right Occiput Anterior (JOSEPH). Nuchal Cord: None. Anesthesia Type: Local. Anesthetic: Lidocaine (Xylocaine) 1 % Plain. Local Anesthetic Volume: Other (15 mL). Episiotomy Type: None. Laceration: 2nd Degree, Perineal (midline, repaired with 3-0 Vicryl). Placenta : Intact, Spontaneous. Cord: 3 Vessels. Estimated Blood Loss: 350. Resuscitation Needed: No. [place]: Bulb Syringe, Cathether, Stimulated, Warmed , [place] Used. Provider: Lee Null. Score 1 min: 7. Score 5 min: 9. Second Stage Interventions: Reports: Pushing Ineffectively, Pushing Involuntarily, Pushing, Knee Chest Position, Pushing, Pulls Own Legs Back. Delivery Comments (Free Text/Narrative):: Stage I: Teto Vega was admitted for medical induction of labor following a biophysical profile that was low with a score of 2/8. The only points were given were for normal JUNI of 11 cm. Her initial monitoring had a baseline of 140s with moderate variability but did not have any accelerations. Discussion was had with patient given this abnormal testing that I would recommend for induction of labor in patient desired to proceed with induction. On admission her cervix was dilated to 2 cm an attempt was made for artificial rupture membranes but was unsuccessful. She was GBS negative. She was started on Pitocin for induction of labor. She progressed to 4 cm dilated and had an artificial rupture membranes with clear fluid. She was continued on Pitocin for augmentation of labor and progressed to complete and pushing. Stage II: On 01/08/2019 she had a normal vaginal delivery of a live female at 2331. Apgars of 7 & 9. Weight of 3190 g (7 lbs 0.5 oz). Length of 20.5 inches. There was no nuchal cord. Infant was delivered in JOSEPH position. The cord was doubly clamped and cut by myself. was placed on mother's abdomen. Stage III: She had a spontaneous delivery of an intact placenta in Horace presentation. Three vessel cord. She was given pitocin and fundal massage. She had a second-degree midline laceration that was repaired with 3-0 Vicryl. Mom and baby were stable to recovery. EBL of 350 mL. Diagnosis: Stroke: No - Discharge Data Discharge Date: 01/10/19 Discharge Disposition: Home, Self-Care 01 Condition: Good - Discharge Diagnosis/Problem(s) (1) 39 weeks gestation of SNOMED Code(s): 75606835 ICD Code: Z3A.39 - 39 WEEKS GESTATION OF Status: Acute Current Visit: Yes (2) Sickle cell trait SNOMED Code(s): 92942533 ICD Code: D57.3 - SICKLE-CELL TRAIT Status: Acute Current Visit: Yes (3) Abnormal test SNOMED Code(s): 173686622 ICD Code: O28.9 - UNSP ABNORMAL FINDINGS ON SCREENING OF MOTHER Status: Acute Current Visit: Yes (4) Vaginal delivery SNOMED Code(s): 345844770 ICD Code: O80 - ENCOUNTER FOR FULL-TERM UNCOMPLICATED DELIVERY Status: Acute Current Visit: Yes (5) Second degree perineal laceration during delivery SNOMED Code(s): 4832050 ICD Code: O70.1 - SECOND DEGREE PERINEAL LACERATION DURING DELIVERY Status : Acute Current Visit: Yes - Patient Summary/Data Complications: None Consults: None Hospital Course: Teto Vega was admitted for induction of labor in the setting of abnormal testing with BPP score of 2/8. On admission her cervix was dilated to 2 cm. She was GBS negative. She was given pitocin for augmentation after failed attempt of artificial rupture membranes. She had artificial rupture of membranes with clear fluid. She progressed to complete and began pushing. On 01/08/2019 she had a normal vaginal delivery of a live female infant at 2331. Apgars of 7 and 9. Weight of 3190 g (7 pounds 0.5 ounces). Her course was uneventful. Her pain was well controlled and she had minimal lochia. She was ambulating, tolerating a regular diet and voiding normally. She was breast and bottle feeding with minimal difficulty. She was afebrile and her hematocrit was 39.1 on admission. She desired to be discharged home on the morning of PPD #2. Her blood type is A+. - Patient Instructions Diet: Regular Diet as Tolerated Activity: Apply Ice, As Tolerated Activity, Other: Nothing in the vagina for 6 weeks. Driving: May Drive Today Showering/Bathing: May Shower Notify Provider of: Fever, Increased Pain, Swelling and Redness, Drainage, Nausea and/or Vomiting Other/Special Instructions: Please contact your physician's office if you have heavy vaginal bleeding enough to soak a pad in less than an hour for several hours. Monitor for any signs of an infection in the breasts with severe pain or redness of the breast. - Discharge Plan *PRESCRIPTION DRUG MONITORING PROGRAM REVIEWED*: Not Applicable *COPY OF PRESCRIPTION DRUG MONITORING REPORT IN PATIENT DALILA: Not Applicable Home Medications: Home Meds Vit No.129/Iron/FA [ One Daily Tablet] 1 each PO DAILY [History] Acetaminophen [Tylenol] 650 mg PO Q6H PRN tablet 01/10/19 [Rx] Benzocaine/Menthol [Dermoplast Pain Relief [place]] 1 spray TOP ASDIRECTED PRN canister 01/10/19 [Rx] Docusate Sodium [Colace] 100 mg PO BID cap 01/10/19 [Rx] Hydrocortisone Acetate [Anucort-HC] 25 mg RECTAL BID PRN supp 01/10/19 [Rx] Ibuprofen [Motrin] 600 mg PO Q6H PRN tablet 01/10/19 [Rx] Lanolin [Lansinoh HPA] 1 applic TOP ASDIRECTED PRN tube 01/10/19 [Rx] Witch Cecily [Tucks] 1 pad TOP ASDIRECTED PRN pad 01/10/19 [Rx] Patient Handouts: Vaginal Delivery, Care After, Care of a Perineal Tear Referrals: Lee Null MD [Physician] - (Follow-up in 2-3 weeks for routine visit or earlier as needed.) - Discharge Summary/Plan Comment DC Time >30 min.: No - Patient Data Vitals - Most Recent: Last Vital Signs Temp 36.7 C 01/10/19 03:52 Pulse 83 01/10/19 03:52 Resp 15 01/10/19 03:52 BP 137/69 01/10/19 03:52 Pulse Ox 100 01/10/19 03:52 Weight - Most Recent: 91.285 kg I&O - Last 24 hours: Intake & Output 01/09/19 01/10/19 01/10/19 22:59 06:59 14:59 Intake Total 120 Balance 120 Med Orders - Current: Current Medications Acetaminophen (Tylenol) 650 mg PO Q6H PRN PRN Reason: mild pain or fever Last Admin: 01/09/19 16:40 Dose: 650 mg Benzocaine/Menthol (Dermoplast Pain Relief [place]) 0 gm TOP ASDIRECTED PRN PRN Reason: Perineal Comfort Measure Last Admin: 01/09/19 03:32 Dose: 1 applic Docusate Sodium (Colace) 100 mg PO BID TRACY Emollient Ointment (Lansinoh Hpa) 0 gm TOP ASDIRECTED PRN PRN Reason: Sore Nipples Hydrocortisone Acetate (Anucort-Hc) 25 mg RECTAL BID PRN PRN Reason: Hemorrhoid pain Ibuprofen (Motrin) 600 mg PO Q6H PRN PRN Reason: Mild pain or fever Last Admin: 01/10/19 01:32 Dose: 600 mg Prenat Multivit/[place]/Iron/Folic Ac ( Plus Iron) 1 each PO DAILY TRACY Last Admin: 01/09/19 08:08 Dose: 1 each Witch Cecily (Tucks) 1 pad TOP ASDIRECTED PRN PRN Reason: Perineal Comfort Measure Last Admin: 01/09/19 03:32 Dose: 1 applic Discontinued Medications Acetaminophen (Tylenol) 650 mg PO Q6H PRN PRN Reason: Pain (Mild 1-3) and fever Docusate Sodium (Colace) 100 mg PO BID PRN PRN Reason: Constipation Lactated Ringer's (Ringers, Lactated) 1,000 mls @ 100 mls/hr IV ASDIRECTED TRACY Last Admin: 01/08/19 17:15 Dose: 100 mls/hr Oxytocin/Lactated Ringer's (Pitocin In Lr 10 Units/1,000 Ml) 10 unit in 1,000 mls @ 100 mls/hr IV .CONTINUOUS TRACY; Protocol Oxytocin/Lactated Ringer's (Pitocin In Lr 10 Units/1,000 Ml) 10 unit in 1,000 mls @ 12 mls/hr IV TITRATE TRACY; Protocol Last Titration: 01/08/19 20:06 Dose: 6 munits/min, 36 mls/hr Lidocaine HCl (Xylocaine 1%) Confirm Administered Dose 50 ml .ROUTE .STK-MED ONE Stop: 01/08/19 23:41 Last Admin: 01/08/19 23:52 Dose: 50 ml Magnesium Hydroxide (Milk Of Magnesia) 30 ml PO ONETIME ONE Stop: 01/10/19 10:17 Nalbuphine HCl (Nubain) 10 mg IVPUSH Q2H PRN PRN Reason: pain Ondansetron HCl (Zofran) 4 mg IVPUSH Q4H PRN PRN Reason: Nausea/Vomiting Sodium Chloride (Saline Flush) 10 ml FLUSH ASDIRECTED PRN PRN Reason: Keep Vein Open
[2019-01-10] MEDS ORDERED: Docusate Sodium 100 MG Cap PO SCH (10:30)
[2019-01-10] MEDS: Prenatal Multivitamin with Calcium/Folic Acid/Iron Tab PO SCH (13:06)
== END 2019-01-10 14:20 | disposition home or self-care (01) | DRG 560 ==
LOC: JD.OBCHECK 13:49 → JD.OB 14:10 → JD.OBCHECK 15:06 → JD.OB 15:06 → OBSVTOIN 23:31 → JD.OB 23:32
PROVIDERS: ADMIT Obstetrics & Gynecology; ATTEND Obstetrics & Gynecology
PROC: 10907ZC Drainage of Amniotic Fluid, Therapeutic from Products of Conception, Via Natural or Artificial Opening (ICD-10-PCS; principal; 2019-01-08)
PROC: 0KQM0ZZ Repair Perineum Muscle, Open Approach (ICD-10-PCS; principal; 2019-01-08)
PROC: 10E0XZZ Delivery of Products of Conception, External Approach (ICD-10-PCS; principal; 2019-01-08)
PROC: 3E033VJ Introduction of Other Hormone into Peripheral Vein, Percutaneous Approach (ICD-10-PCS; principal; 2019-01-08)
DX: O28.8 Other abnormal findings on antenatal screening of mother (principal); O99.12 Other diseases of the blood and blood-forming organs and certain disorders involving the immune mechanism complicating childbirth; Z3A.39 39 weeks gestation of pregnancy; Z37.0 Single live birth; D57.3 Sickle-cell trait; O70.1 Second degree perineal laceration during delivery; O99.62 Diseases of the digestive system complicating childbirth; K21.9 Gastro-esophageal reflux disease without esophagitis; K59.00 Constipation, unspecified; Z87.442 Personal history of urinary calculi
CPT/HCPCS: 36415; 59025; 59409; 85025; 86592; 86850; 86900; 86901; A9270-GY; J2001; J2590; J7120

== ENCOUNTER 2019-11-27 08:46 | Emergency (ER) | payer BC ==
[2019-11-27 09:03] VITALS: BP 128/68; PULSE 68
--- NOTE | 2019-11-27 09:38 | EDM.PDOC ---
<Bernie Agudelo - Last Filed: 11/27/19 09:32> ED HPI GENERAL MEDICAL PROBLEM - General Chief Complaint: ENT Problem Stated Complaint: RIGHT EAR PAIN Time Seen by Provider: 11/27/19 09:40 Source of Information: Reports: Patient History Limitations: Reports: No Limitations - History of Present Illness INITIAL COMMENTS - FREE TEXT/NARRATIVE: 34-year-old female presents with right ear pain that has been worsening over the past 1.5 weeks. Today she describes the ear pain as sharp and radiating down her neck. She also states that it feels like there is a lot of pressure in her ear and sounds are very muffled. As well as pain and pressure, she has also noticed itching. She was seen in the [facility] and told to try OTC ear drops for pain and itching relief, which have not been beneficial. She denies left ear pain, sinus pain/congestion, sore throat, and respiratory symptoms. 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: Reports: Other (see below) (OTC ear drops ) Right Ear Pain Score (Numeric/FACES): 10 - Related Data Allergies Allergy/AdvReac Type Severity Reaction Status Date / Time No Known Allergies Allergy Verified 11/25/18 15:26 Home Meds: Home Meds Vit No.129/Iron/FA [ One Daily Tablet] 1 each PO DAILY [History] Acetaminophen [Tylenol] 650 mg PO Q6H PRN tablet 01/10/19 [Rx] Benzocaine/Menthol [Dermoplast Pain Relief [place]] 1 spray TOP ASDIRECTED PRN canister 01/10/19 [Rx] Docusate Sodium [Colace] 100 mg PO BID cap 01/10/19 [Rx] Hydrocortisone Acetate [Anucort-HC] 25 mg RECTAL BID PRN supp 01/10/19 [Rx] Ibuprofen [Motrin] 600 mg PO Q6H PRN tablet 01/10/19 [Rx] Lanolin [Lansinoh HPA] 1 applic TOP ASDIRECTED PRN tube 01/10/19 [Rx] Witch Cecily [Tucks] 1 pad TOP ASDIRECTED PRN pad 01/10/19 [Rx] Amoxicillin/Clavulanate K [Augmentin 875-125 MG] 1 tab PO Q12HR #14 tablet 11/27 [Rx] Past Medical History - Past Health History Medical/Surgical History: Denies Medical/Surgical History HEENT History: Reports: Impaired Vision Cardiovascular History: Reports: None Respiratory History: Reports: None Gastrointestinal History: Reports: GERD Genitourinary History: Reports: Renal Calculus 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: Reports: Other 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: x2 Musculoskeletal History: Reports: None Neurological History: Reports: None Psychiatric History: Reports: None Endocrine/Metabolic History: Reports: None Hematologic History: Reports: Other (See Below) Other Hematologic History: Sickle cell trait (As) Immunologic History: Reports: None Oncologic (Cancer) History: Reports: None Dermatologic History: Reports: None - Past Surgical History Head Surgeries/Procedures: Reports: None HEENT Surgical History: Reports: None Cardiovascular Surgical History: Reports: None Respiratory Surgical History: Reports: None GI Surgical History: Reports: None Female Surgical History: Reports: None Endocrine Surgical History: Reports: None Neurological Surgical History: Reports: None Musculoskeletal Surgical History: Reports: None Oncologic Surgical History: Reports: None Dermatological Surgical History: Reports: None Social & Family History - Family History Family Medical History: Noncontributory Cardiac: Reports: None Respiratory: Reports: None GI: Reports: None : Reports: None OBGYN: Reports: None Musculoskeletal: Reports: None Neurological: Reports: None Psychiatric: Reports: None Endocrine/Metabolic: Reports: None - Tobacco Use Smoking Status *Q: Never Smoker - Caffeine Use Caffeine Use: Reports: Tea - Living Situation & Occupation Living situation: Reports: , with Family (In apartment in [place]) ED ROS ENT - Review of Systems Review Of Systems: See Below Constitutional: Reports: No Symptoms HEENT: Reports: Ear Pain (right ear, not left ear), Hearing Loss (muffled right ear). Denies: Eye Pain, Sinus Problem, Throat Pain Respiratory: Reports: No Symptoms Cardiovascular: Reports: No Symptoms GI/Abdominal: Reports: No Symptoms : Reports: No Symptoms Musculoskeletal: Reports: Neck Pain (right sided radiating down from the ear) Skin: Reports: No Symptoms Neurological: Reports: Headache (mild, due to ear pain) Psychiatric: Reports: No Symptoms Hematologic/Lymphatic: Reports: No Symptoms Immunologic: Reports: No Symptoms ED EXAM, ENT - Physical Exam Exam: See Below Exam Limited By: No Limitations General Appearance: Alert, WD/WN, No Apparent Distress Ears: Normal External Exam, Canal Blood (small laceration on superior/posterior right canal ), Canal Discharge (white and thick sitting over right TM), Other ( left TM and canal normal, right TM patchy white ). No: Auricular Tenderness, Mastoid Swelling, Mastoid Tenderness, Canal Foreign Body Neck: Normal Inspection, Supple, Tender Lateral (right ). No: Lymphadenopathy ( L), Lymphadenopathy (R) Respiratory/Chest: No Respiratory Distress, Lungs Clear, Normal Breath Sounds, No Accessory Muscle Use Cardiovascular: Normal Peripheral Pulses, Regular Rate, Rhythm, No Murmur Neurological: Alert, Oriented, Normal Cognition Psychiatric: Normal Affect, Normal Mood Skin: Warm, Dry, Intact, Normal Color, No Rash Course - Vital Signs Last Recorded V/S: Last Vital Signs Temp 97.6 F 11/27/19 09:00 Pulse 68 11/27/19 09:00 Resp 18 11/27/19 09:00 BP 128/68 11/27/19 09:00 Pulse Ox 99 11/27/19 09:00 Departure - Departure Disposition: Home, Self-Care 01 Clinical Impression: Otitis media Qualifiers: Otitis media type: unspecified Chronicity: acute Qualified Code(s): H66.90 - Otitis media, unspecified, unspecified ear - Discharge Information Prescriptions: Amoxicillin/Clavulanate K [Augmentin 875-125 MG] 1 tab PO Q12HR #14 tablet Instructions: Otitis Media, Adult, [id number] Referrals: Trever Russ MD [Primary Care Provider] - Forms: ED Department Discharge Additional Instructions: Prescription for Augmentin 875 mg twice daily for 1 week has been sent electronically to clinic pharmacy. Start that today and take that twice daily with food until gone. Take probiotic twice daily to help with potential side effects from the medication. See your medical provider later next week for recheck. Call for appointment. You can alternate Tylenol and ibuprofen as needed for discomfort. Sepsis Event Note - Evaluation Sepsis Screening Result: No Definite Risk - Focused Exam Vital Signs: Vital Signs Temp Pulse Resp BP Pulse Ox 11/27/19 09:00 97.6 F 68 18 128/68 99 Date Exam was Performed: 11/27/19 Time Exam was Performed: 09:32 <Alex Hale - Last Filed: 11/27/19 14:16> Course - Re-Assessments/Exams Free Text/Narrative Re-Assessment/Exam: 11/27/19 14:13 Initial hx and exam was done by YADIRA Copploa student. I agree with her hx and exam as documented. I have also interviewed and examined patient. She does have a buldging dull, inflamed R TM with small amt of exudate on the surface. Ear canal is otherwise clear other than a small amount of wax. Outer ear canal and area around the ear canal is all totally nontender, without erythema or swelling. No active drainage or evidence of prior drainage or any other findings to suggest external otitis. Departure - Departure Time of Disposition: 10:01 Condition: Fair Sepsis Event Note - Focused Exam Date Exam was Performed: 11/27/19 Time Exam was Performed: 14:13
== END 2019-11-27 10:25 | disposition home or self-care (01) ==
LOC: JD.ED 08:46
DX: H66.91 Otitis media, unspecified, right ear (principal); S01.311A Laceration without foreign body of right ear, initial encounter; X58.XXXA Exposure to other specified factors, initial encounter
CPT/HCPCS: 99282

== ENCOUNTER 2019-11-28 07:28 | Emergency (ER) | payer BC, OTHER ==
--- NOTE | 2019-11-28 08:15 | EDM.PDOC ---
<Bernie Agudelo L - Last Filed: 11/28/19 08:19> ED HPI GENERAL MEDICAL PROBLEM - General Chief Complaint: ENT Problem Stated Complaint: R EAR PAIN Time Seen by Provider: 11/28/19 07:57 Source of Information: Reports: Patient History Limitations: Reports: No Limitations - History of Present Illness INITIAL COMMENTS - FREE TEXT/NARRATIVE: 34-year-old female presents with right ear fullness and tinnitus. She was seen in the ED yesterday for right ear pain that had been present for a few days. She was prescribed Augmentin. She notes that the pain has improved since taking the antibiotic but she is now having tinnitus. Her hearing has not improved, stating it feels like it is "plugged." She is concerned about the hearing because she has orientation for work today. Drainage is present today. 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 Medication(s) (antibiotic) - Related Data Allergies Allergy/AdvReac Type Severity Reaction Status Date / Time No Known Allergies Allergy Verified 11/28/19 07:42 Home Meds: Home Meds Ofloxacin 10 drop EARRT DAILY #10 ml 11/28/19 [Rx] Past Medical History - Past Health History Medical/Surgical History: Denies Medical/Surgical History HEENT History: Reports: Impaired Vision Cardiovascular History: Reports: None Respiratory History: Reports: None Gastrointestinal History: Reports: GERD Genitourinary History: Reports: Renal Calculus 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 Musculoskeletal History: Reports: None Neurological History: Reports: None Psychiatric History: Reports: None Endocrine/Metabolic History: Reports: None Hematologic History: Reports: Other (See Below) Other Hematologic History: Sickle cell trait (As) Immunologic History: Reports: None Oncologic (Cancer) History: Reports: None Dermatologic History: Reports: None - Past Surgical History Head Surgeries/Procedures: Reports: None HEENT Surgical History: Reports: None Cardiovascular Surgical History: Reports: None Respiratory Surgical History: Reports: None GI Surgical History: Reports: None Female Surgical History: Reports: None Endocrine Surgical History: Reports: None Neurological Surgical History: Reports: None Musculoskeletal Surgical History: Reports: None Oncologic Surgical History: Reports: None Dermatological Surgical History: Reports: None Social & Family History - Family History Family Medical History: Noncontributory Cardiac: Reports: None Respiratory: Reports: None GI: Reports: None : Reports: None OBGYN: Reports: None Musculoskeletal: Reports: None Neurological: Reports: None Psychiatric: Reports: None Endocrine/Metabolic: Reports: None - Tobacco Use Smoking Status *Q: Never Smoker - Caffeine Use Caffeine Use: Reports: None - Living Situation & Occupation Living situation: Reports: , with Family (In apartment in [place]) ED ROS ENT - Review of Systems Review Of Systems: See Below Constitutional: Reports: No Symptoms HEENT: Reports: Ear Discharge (white, right ear), Ear Pain (right ear), Other ( tinnitus and fullness of right ear). Denies: Sinus Problem, Throat Pain Respiratory: Reports: No Symptoms Cardiovascular: Reports: No Symptoms GI/Abdominal: Reports: No Symptoms : Reports: No Symptoms Musculoskeletal: Reports: No Symptoms Skin: Reports: No Symptoms Neurological: Reports: No Symptoms Psychiatric: Reports: No Symptoms Hematologic/Lymphatic: Reports: No Symptoms Immunologic: Reports: No Symptoms ED EXAM, ENT - Physical Exam Exam: See Below Exam Limited By: No Limitations General Appearance: Alert, WD/WN, No Apparent Distress Ears: Normal External Exam, Canal Discharge (white fluid), Other (left TM/canal/ external ear normal, right TM unable to be visualized ). No: Auricular Tenderness, Mastoid Swelling, Mastoid Tenderness, Canal Blood, Canal Foreign Body, Cerumen Impaction Neurological: Alert, Oriented, Normal Cognition Psychiatric: Normal Affect, Normal Mood Skin: Warm, Dry, Intact, Normal Color Course - Vital Signs Last Recorded V/S: Last Vital Signs Temp 97.4 F 11/28/19 07:38 Pulse 94 11/28/19 07:38 Resp 19 11/28/19 07:38 BP 155/76 H 11/28/19 07:38 Pulse Ox 98 11/28/19 07:38 Departure - Departure Disposition: Home, Self-Care 01 Clinical Impression: Otitis externa Qualifiers: Otitis externa type: unspecified type Chronicity: acute Laterality: right Qualified Code(s): H60.501 - Unspecified acute noninfective otitis externa, right ear Otitis media Qualifiers: Otitis media type: unspecified Chronicity: acute Qualified Code(s): H66.90 - Otitis media, unspecified, unspecified ear - Discharge Information Prescriptions: Ofloxacin 10 drop EARRT DAILY #10 ml Referrals: PCP,None [Primary Care Provider] - Julieta Sood PA-C [Physician Insulation Board Coater Operator] - 1 Week Forms: ED Department Discharge Additional Instructions: Keep taking the amoxicillin and use the ofloxacin drops 10 drops to the right ear daily for 1 week. Please return if you are worse. Sepsis Event Note - Evaluation Sepsis Screening Result: No Definite Risk - Focused Exam Vital Signs: Vital Signs Temp Pulse Resp BP Pulse Ox 11/28/19 07:38 97.4 F 94 19 155/76 H 98 Date Exam was Performed: 11/28/19 Time Exam was Performed: 08:19 <Matt Sousa - Last Filed: 11/28/19 08:30> Course - Re-Assessments/Exams Free Text/Narrative Re-Assessment/Exam: 11/28/19 08:25 I examined the patient myself and I agree with Bernie's assessment and plan. I will get her on some ofloxacin drops also. Departure - Departure Time of Disposition: 08:25 Condition: Good - Discharge Information *PRESCRIPTION DRUG MONITORING PROGRAM REVIEWED*: Not Applicable *COPY OF PRESCRIPTION DRUG MONITORING REPORT IN PATIENT DALILA: Not Applicable Sepsis Event Note - Focused Exam Date Exam was Performed: 11/28/19 Time Exam was Performed: 08:24
== END 2019-11-28 08:41 | disposition home or self-care (01) ==
LOC: JD.ED 07:28
CPT/HCPCS: 99282; 99283

== ENCOUNTER 2020-07-07 15:34 | Emergency (ER) | payer MEDICAID, OTHER, SELFPAY ==
--- NOTE | 2020-07-07 17:10 | US ---
Obstetrical ultrasound: Multiple real-time images were obtained transabdominally. Comparison: No previous imaging for current is available. Dates: Current ultrasound: BERRY 12/07/20, gestational age 18 weeks 1 day presentation: Mobile Placenta: Posterior with no findings of placenta previa, no findings of placental abruption are seen Amniotic fluid: JUNI 9.2 cm Measurements: BPD: 3.92 cm - 18 weeks 0 days Head circumference: 14.61 cm - 17 weeks 6 days Abdominal circumference: 12.71 cm - 18 weeks 3 days Femur length: 2.66 cm - 18 weeks 1 day Estimated weight: 226 g (0 lbs. 8 oz.), estimated weight at 46th percentile for age by current ultrasound Heart rate: 150 BPM Cervical length: 3.2 cm. Impression: 1. Single intrauterine fetus mobile in presentation. Dates as noted above. 2. No complicating process is seen at this time. Note: This exam was not an anatomic survey. Diagnostic code #1 This report was dictated in MDT
--- NOTE | 2020-07-07 18:28 | EDM.PDOC ---
ED HPI GENERAL MEDICAL PROBLEM - General Chief Complaint: MAIL WEIGHER Problem Stated Complaint: ABDOMINAL PAIN 18 WKS PREG Time Seen by Provider: 07/07/20 15:59 Source of Information: Reports: Patient, RN Notes Reviewed - History of Present Illness INITIAL COMMENTS - FREE TEXT/NARRATIVE: 34 yr old female 18 wks has had mild intermitent pelvic pain since last evening. She is . This has been going well. Had a nl US at about 12 wks. No spotting or bleeding. No voiding sx. No fever, chills, nausea or vomiting. 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: x4 Musculoskeletal History: Reports: None Neurological History: Reports: None Psychiatric History: Reports: None Endocrine/Metabolic History: Reports: None Hematologic History: Reports: Other (See Below) Other Hematologic History: Sickle cell trait (As) Immunologic History: Reports: None Oncologic (Cancer) History: Reports: None Dermatologic History: Reports: None - Past Surgical History Head Surgeries/Procedures: Reports: None HEENT Surgical History: Reports: None Cardiovascular Surgical History: Reports: None Respiratory Surgical History: Reports: None GI Surgical History: Reports: None Female Surgical History: Reports: None Endocrine Surgical History: Reports: None Neurological Surgical History: Reports: None Musculoskeletal Surgical History: Reports: None Oncologic Surgical History: Reports: None Dermatological Surgical History: Reports: None Social & Family History - Family History Family Medical History: Noncontributory Cardiac: Reports: None Respiratory: Reports: None GI: Reports: None : Reports: None OBGYN: Reports: None Musculoskeletal: Reports: None Neurological: Reports: None Psychiatric: Reports: None Endocrine/Metabolic: Reports: None - Tobacco Use Smoking Status *Q: Never Smoker - Caffeine Use Caffeine Use: Reports: None - Recreational Drug Use Recreational Drug Use: No - Living Situation & Occupation Living situation: Reports: , with Family (In apartment in [place]) ED ROS GENERAL - Review of Systems Review Of Systems: See Below Constitutional: Denies: Fever, Chills HEENT: Reports: No Symptoms Respiratory: Denies: Shortness of Breath Cardiovascular: Denies: Chest Pain GI/Abdominal: Reports: Abdominal Pain (mild low mid pelvic pain). Denies: Nausea, Vomiting : Reports: No Symptoms Musculoskeletal: Denies: Back Pain Skin: Reports: No Symptoms ED EXAM - Physical Exam Exam: See Below General Appearance: Alert, No Apparent Distress Head: Atraumatic Neck: Supple Respiratory/Chest: No Respiratory Distress, Lungs Clear, Normal Breath Sounds Cardiovascular: Regular Rate, Rhythm GI/Abdominal Exam: Soft, Non-Tender, Other (upper and lower abd completely nontender, appropriately distended with uterus palpable up to about the umbilicus). No: Guarding, Rebound Back Exam: No: CVA Tenderness (L), CVA Tenderness (R) Extremities: Normal Inspection. No: Pedal Edema, Leg Pain Skin Exam: Warm, Dry Course - Vital Signs Last Recorded V/S: Last Vital Signs Temp 97.4 F 07/07/20 18:05 Pulse 84 07/07/20 18:05 Resp 16 07/07/20 18:05 BP 119/65 07/07/20 18:05 Pulse Ox 99 07/07/20 18:05 - Orders/Labs/Meds Orders: Active Orders 24 hr Category Date Time Status CULTURE URINE [RM] Stat Lab 07/07/20 15:50 Received Labs: Laboratory Tests 07/07/20 Range/Units 15:50 Urine Color Light yellow (Yellow) Urine Appearance Clear (Clear) Urine pH 7.0 (5.0-8.0) Ur Specific [place] 1.015 (1.005-1.030) Urine Protein Negative (Negative) Urine Glucose (UA) Negative (Negative) Urine Ketones Negative (Negative) Urine Occult Blood Negative (Negative) Urine Nitrite Negative (Negative) Urine Bilirubin Negative (Negative) Urine Urobilinogen 0.2 (0.2-1.0) Ur Leukocyte Esterase Trace H (Negative) Urine RBC 0-5 (0-5) /hpf Urine WBC 0-5 (0-5) /hpf Ur Squamous Epith Cells 5-10 H (0-5) /hpf Urine Bacteria Few (FEW) /hpf Urine Mucus Few (FEW) /hpf - Re-Assessments/Exams Free Text/Narrative Re-Assessment/Exam: 07/07/20 18:24 Pelvic US looks good, no abnormal finding, HR 150, 18 wk, 0 days. On recheck a few minutes ago pain is completely gone. Ua show trace leukocyte positive, urine culture ordered. Discussed with Dr Russ, discharge instr. as documented. Departure - Departure Time of Disposition: 18:26 Disposition: Home, Self-Care 01 Condition: Fair Clinical Impression: Pelvic pain, Second trimester - Discharge Information Instructions: Pelvic Pain, Female, [id number], Second Trimester of , [id number]-Auot Referrals: Trever Russ MD [Primary Care Provider] - Forms: ED Department Discharge Additional Instructions: Pelvic rest, no sexual activity for 2 weeks. Urine culture has been done. If the culture turns out positive for UTI we will call you. Drink plenty of water. Call or see Dr Russ if symptoms worsening in any way. Return to ED as needed. Sepsis Event Note (ED) - Evaluation Sepsis Screening Result: No Definite Risk - Focused Exam Vital Signs: Vital Signs Temp Pulse Resp BP Pulse Ox 07/07/20 18:05 97.4 F 84 16 119/65 99 07/07/20 15:48 97.6 F 80 18 106/56 L 93 L - My Orders Last 24 Hours: My Active Orders 07/07/20 15:50 CULTURE URINE [RM] Stat - Assessment/Plan Last 24 Hours: My Active Orders 07/07/20 15:50 CULTURE URINE [RM] Stat
[2020-07-07 18:40] VITALS: BP 119/65; PULSE 84
== END 2020-07-07 18:34 | disposition home or self-care (01) ==
LOC: JD.ED 15:34
DX: O99.89 Other specified diseases and conditions complicating pregnancy, childbirth and the puerperium (principal); R10.2 Pelvic and perineal pain; Z3A.18 18 weeks gestation of pregnancy
CPT/HCPCS: 76815; 76815-26; 81001; 87086; 87088; 87186; 99282; 99284-25

== ENCOUNTER 2020-11-27 09:46 | Inpatient (IN) | payer MEDICAID, OTHER, SELFPAY ==
[2020-11-27] MEDS ORDERED: Acetaminophen 325 MG Tab PO PRN (10:40)
[2020-11-27] MEDS ORDERED: Sodium Chloride 0.9% 10 ML Syringe FLUSH PRN (10:40)
[2020-11-27] MEDS ORDERED: Nalbuphine 10 MG/1 ML Vial IVPUSH PRN (10:40)
[2020-11-27] MEDS ORDERED: Ampicillin 2 GM AdvVial IV ONE (10:42)
[2020-11-27] MEDS ORDERED: Lactated Ringers 1,000 ML IV SCH (10:45)
[2020-11-27] MEDS ORDERED: Oxytocin/Lactated Ringers 10 UNIT/1,000 ML BAG IV SCH ×2 (10:45→12:38)
[2020-11-27] MEDS ORDERED: Ampicillin 2 GM in Sodium Chloride 0.9% 100 ML IV ONE (11:00)
--- NOTE | 2020-11-27 12:02 | PCM.LDHP ---
L&D History of Present Illness - General Date of Service: 11/27/20 Admit Problem/Dx: Patient Status Order with Admit Dx/Problem 11/27/20 09:57 Patient Status [ADT] Routine Admission Diagnosis/Problem Admission Diagnosis/Problem Vaginal delivery Source of Information: Patient History Limitations: Reports: No Limitations - History of Present Illness Introduction:: Teto Tello is a 35-year-old -0-0-3 female at 38 weeks 2 days (BERRY 12/09/2020) by a 7-week ultrasound who presents with active contractions. She reports that her contractions started at around 2 AM and they were about 5 to 8 minutes apart. They have been getting increasingly stronger throughout the morning. She denies any leaking of fluid or vaginal bleeding. She reports that she has been having good movement. Timing/Duration: Reports: gradual onset (Starting at around 2 AM and occurring every 5 to 8 minutes), getting worse Location, : Reports: Lower back, Pelvic Quality: Reports: Pressure, Throbbing Severity: Severe Worsens with: Reports: None Associated Symptoms: Denies: vaginal bleeding, vaginal discharge, vaginal fluid Present Illness Comments:: Teto Tello is a 35-year-old -0-0-3 female at 38 weeks 2 days (BERRY 12/09/2020) by a 7-week ultrasound who presented in active labor. She has had fairly regular visits with myself, Dr. Null, and Dr. Russ throughout her . She was diagnosed with GBS bacteriuria in early but did not have any additional urinary tract infections during the . She was COVID-19 positive on 09/27/1820. She has sickle cell trait and has not had significant complications with urinary tract infections from this. She did not received Tdap and flu during this . Her is complicated by: * GBS bacteriuria found on initial urine culture. No significant urinary tract infections throughout the . * Sickle cell trait -patient with sickle cell trait and had testing for urine cultures monthly. She did not have any significant urinary tract infections throughout the . 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 coli at 10,000 CFU Rubella status: Immune Hepatitis B surface antigen: Negative RPR: Negative HIV: Negative Gonorrhea: Negative Chlamydia: Negative Anatomy ultrasound: Normal anatomy ultrasound, no abnormalities, posterior placenta, 44th percentile on most recent ultrasound on 09/06/2020, multiple anterior fibroids present One hour glucose tolerance test: 159 Second trimester hematocrit/hemoglobin: 35.3%/11.7 on 09/20/2020 Platelets: 301 on 09/20/2020 3-hour glucose tolerance test: Fasting 79, 1 hour 108, 2-hour 108, 3-hour 88 GBS status: Positive by GBS bacteriuria - Related Data Allergies/Adverse Reactions: Allergies Allergy/AdvReac Type Severity Reaction Status Date / Time No Known Allergies Allergy Verified 11/27/20 10:22 Home Medications: Home Meds Vit,[place] 74/Iron/Folic [ Low Iron Tablet] 1 tab PO DAILY 07/07/20 [History] Nitrofurantoin Monohyd/M-Cryst [Macrobid 100 mg Capsule] 100 mg PO BID #14 capsule 07/11/20 [Rx] Past Medical History - Past Health History Medical/Surgical History: Denies Medical/Surgical History HEENT History: Reports: Impaired Vision Cardiovascular History: Reports: None Respiratory History: Reports: None Gastrointestinal History: Reports: GERD Genitourinary History: Reports: Renal Calculus [employer] 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: Other OB/BYN History: x4 Musculoskeletal History: Reports: None Neurological History: Reports: None Psychiatric History: Reports: None Endocrine/Metabolic History: Reports: None Hematologic History: Reports: Other (See Below) Other Hematologic History: Sickle cell trait (As) Immunologic History: Reports: None Oncologic (Cancer) History: Reports: None Dermatologic History: Reports: None - Past Surgical History Head Surgeries/Procedures: Reports: None HEENT Surgical History: Reports: None Cardiovascular Surgical History: Reports: None Respiratory Surgical History: Reports: None GI Surgical History: Reports: None Female Surgical History: Reports: None Endocrine Surgical History: Reports: None Neurological Surgical History: Reports: None Musculoskeletal Surgical History: Reports: None Oncologic Surgical History: Reports: None Dermatological Surgical History: Reports: None Social & Family History - Family History Family Medical History: No Pertinent Family History Cardiac: Reports: None Respiratory: Reports: None GI: Reports: None : Reports: None OBGYN: Reports: None Musculoskeletal: Reports: None Neurological: Reports: None Psychiatric: Reports: None Endocrine/Metabolic: Reports: None - Tobacco Use Tobacco Use Status *Q: Never Tobacco User Tobacco Use Within Last Twelve Months: No - Tobacco Core Measures Tobacco Use/Smoking Within Last 30 Days: No Smokeless Tobacco Use in Last 30 Days: No - Caffeine Use Caffeine Use: Reports: None - Alcohol Use Alcohol Use History: No - Recreational Drug Use Recreational Drug Use: No Drug Use in Last 12 Months: No - Living Situation & Occupation Living situation: Reports: , with Family (In apartment in [place]) H&P Review of Systems - Review of Systems: Review Of Systems: See Below General: Denies: Fever, Chills, Malaise, Weakness, Fatigue HEENT: Denies: Headaches, Rhinitis, Post Nasal Drip, Sinus Congestion, Sore Throat, Visual Changes Pulmonary: Denies: Shortness of Breath, Wheezing, Pleuritic Chest Pain, Cough Cardiovascular: Denies: Chest Pain, Palpitations, Dyspnea on Exertion, Orthopnea Gastrointestinal: Denies: Abdominal Pain, Constipation, Diarrhea, Nausea, Vomiting Genitourinary: Denies: Frequency, Burning, Pain, Urgency Musculoskeletal: Reports: Back Pain (and pelvic pain of ) Skin: Denies: Rash, Lesions Psychiatric: Denies: Depression, Anxiety L&D Exam - Exam Exam: See Below - Vital Signs Vital Signs: Last Vital Signs Temp 36.7 C 11/27/20 09:57 Pulse 98 11/27/20 09:57 Resp 16 11/27/20 09:57 BP 123/67 11/27/20 09:57 Pulse Ox 100 11/27/20 09:57 Weight: 88.133 kg - OB Specific Contraction Duration (sec): 60-75 Contraction Frequency (min): 2-5 Contraction Intensity: Strong Movement: Active Heart Tones: Present Heart Tones per Min: 140 (+15 x 15 accelerations, intermittent early dece lerations) Heart Rate (FHR) Variability: Moderate (6-25 bmp) Presentation: Vertex - Kelly Score Kelly Score Cervix Position: Anterior Kelly Score Consistency: Soft Kelly Score Effacement: >80% (100%) Kelly Score Dilation: > 5 cm (9.5) Kelly Score 's Station: +1, +2 (+1) Kelly Score Total: 13 - Exam General: Alert, Oriented HEENT: Conjunctiva Clear, EOMI Neck: Supple, Trachea Midline Lungs: Clear to Auscultation, Normal Respiratory Effort Cardiovascular: Regular Rate, Regular Rhythm GI/Abdominal Exam: Soft, Non-Tender, No Distention, Other (Gravid). No: Guarding, Rigid, Rebound Genitourinary: Normal external exam Extremities: Normal Inspection, No Pedal Edema Skin: Warm, Dry, Intact Psychiatric: Alert, Normal Affect, Normal Mood - Patient Data Lab Results Last 24 hrs: Laboratory Results - last 24 hr 11/27/20 Range/Units 10:53 WBC 8.22 (3.98-10.04) K/mm3 RBC 4.61 (3.98-5.22) M/mm3 Hgb 12.3 (11.2-15.7) gm/dl Hct 37.5 (34.1-44.9) % MCV 81.3 D (79.4-94.8) fl MCH 26.7 (25.6-32.2) pg MCHC 32.8 (32.2-35.5) g/dl RDW Std Deviation 41.7 (36.4-46.3) fL Plt Count 278 (182-369) K/mm3 MPV 10.3 (9.4-12.3) fl Neut % (Auto) 65.9 (34.0-71.1) % Lymph % (Auto) 26.6 (19.3-51.7) % [place] % (Auto) 7.1 (4.7-12.5) % Eos % (Auto) 0.2 L (0.7-5.8) Baso % (Auto) 0.1 (0.1-1.2) % Neut # (Auto) 5.41 (1.56-6.13) K/mm3 Lymph # (Auto) 2.19 (1.18-3.74) K/mm3 [place] # (Auto) 0.58 H (0.24-0.36) K/mm3 Eos # (Auto) 0.02 L (0.04-0.36) K/mm3 Baso # (Auto) 0.01 (0.01-0.08) K/mm3 Result Diagrams: 11/27/20 10:53 - Problem List (1) GBS bacteriuria SNOMED Code(s): 53603860 ICD Code: R82.71 - BACTERIURIA Status: Acute Current Visit: Yes (2) Advanced maternal age in multigravida SNOMED Code(s): 943434430 ICD Code: O09.529 - SUPERVISION OF ELDERLY MULTIGRAVIDA, UNSPECIFIED TRIMESTER Status: Acute Current Visit: Yes (3) 38 weeks gestation of SNOMED Code(s): 64752619 ICD Code: Z3A.38 - 38 WEEKS GESTATION OF Status: Acute Current Visit: No (4) Sickle cell trait SNOMED Code(s): 72847015 ICD Code: D57.3 - SICKLE-CELL TRAIT Status: Acute Current Visit: No Problem List Initiated/Reviewed/Updated: Yes Orders Last 24hrs: Active Orders 24 hr Category Date Time Status Patient Status Manage Transfer [TRANSFER] Routine ADT 11/27/20 11:46 Ordered Patient Status [ADT] Routine ADT 11/27/20 09:57 Active Activity as Tolerated [RC] PFP Care 11/27/20 10:40 Active Communication Order [RC] ASDIRECTED Care 11/27/20 10:40 Active Heart Tones [RC] ASDIRECTED Care 11/27/20 10:40 Active Notify Provider Vital Signs [RC] PRN Care 11/27/20 10:40 Active Notify Provider [RC] PFP Care 11/27/20 10:40 Active Notify Provider [RC] PRN Care 11/27/20 10:40 Active Peripheral IV Care [RC] . DIRECTED Care 11/27/20 10:40 Active Pump Management, Intrathecal [RC] ASDIRECTED Care 11/27/20 10:40 Active Urinary Catheter Assessment [RC] ASDIRECTED Care 11/27/20 10:40 Active Vital Signs [RC] PER UNIT ROUTINE Care 11/27/20 10:40 Active Regular Diet [DIET] Diet 11/27/20 Lunch Active BLOOD BANK HOLD SPECIMEN [BBK] Routine Lab 11/27/20 10:40 Ordered CORONAVIRUS COVID-19 ELMER [MOLEC] Stat Lab 11/27/20 11:42 Ordered RAPID PLASMA REAGIN,RPR [CHEM] Routine Lab 11/27/20 10:53 Received Acetaminophen [TylenoL] Med 11/27/20 10:40 Active 650 mg PO Q6H PRN Ampicillin 1 gm Med 11/27/20 13:00 Active Sodium Chloride 0.9% [Normal Saline] 100 ml IV Q4H Lactated Ringers [Ringers, Lactated] 1,000 ml Med 11/27/20 10:45 Active IV ASDIRECTED Nalbuphine [Nubain] Med 11/27/20 10:40 Active 10 mg IVPUSH Q2H PRN Oxytocin/Lactated Ringers [Pitocin in LR 10 Units/1,000 Med 11/27/20 10:45 Active ML] 10 unit in 1,000 ml IV .CONTINUOUS Sodium Chloride 0.9% [Saline Flush] Med 11/27/20 10:40 Active 10 ml FLUSH ASDIRECTED PRN Electronic Heart Tones Ext w TOCO [WOMSER] Oth 11/27/20 10:40 Ordered Routine Electronic Heart Tones Internal [WOMSER] Per Unit Oth 11/27/20 10:40 Ordered Routine Peripheral IV Insertion Adult [OM.PC] Routine Oth 11/27/20 10:40 Ordered Resuscitation Status Routine Resus Stat 11/27/20 09:57 Ordered Medication Orders Acetaminophen (Tylenol) 650 mg PO Q6H PRN PRN Reason: Pain (Mild 1-3) and fever Lactated Ringer's (Ringers, Lactated) 1,000 mls @ 100 mls/hr IV ASDIRECTED TRACY Ampicillin Sodium 1 gm/ Sodium (Chloride) 100 mls @ 200 mls/hr IV Q4H TRACY Oxytocin/Lactated Ringer's (Pitocin In Lr 10 Units/1,000 Ml) 10 unit in 1,000 mls @ 100 mls/hr IV .CONTINUOUS TRACY; Protocol Nalbuphine HCl (Nubain) 10 mg IVPUSH Q2H PRN PRN Reason: Pain Sodium Chloride (Saline Flush) 10 ml FLUSH ASDIRECTED PRN PRN Reason: Keep Vein Open Assessment/Plan Comment:: Teto Tello is a 35-year-old -0-0-3 female at 38 weeks 2 days (BERRY 12/09/2020) who presents with advanced stage of labor complicated by GBS bacteriuria, sickle cell trait, advanced maternal age and history of COVID-19 infection during Patient was dilated at 5 to 6 cm on arrival and there was difficulty placing an IV. She made quick progression from initial cervical dilation to complete within approximately 1 hour. An antecubital IV was started and she was given antibiotics at this time and had the antibiotics in for approximately 15 minutes before delivery. Refer to observation for spontaneous labor with advanced cervical dilation and contractions Continuous monitoring Place IV and have Lactated Ringer's at 125 ml/hr May have small amounts of regular diet Activity as tolerated Plan for artificial rupture membranes and delivery shortly after she went to complete and had her IV in place Plans to bottlefeed after delivery Patient given 1 dose of ampicillin 2 g approximately 15 minutes prior to delivery Anticipate vaginal delivery unless otherwise indicated The note was written after the delivery due to the advanced stage of labor for the patient Lee Null MD 12:08 PM 11/27/2020
--- NOTE | 2020-11-27 12:18 | PCM.DEL ---
L & D Note - General Info Date of Service: 11/27/20 Mother's Due Date: 12/09/20 - Delivery Note Labor: Spontaneous Delivery Outcome: Livebirth Infant Delivery Method: Spontaneous Vaginal Delivery-Single Presentation: Left Occiput Anterior (MIRANDA) Nuchal Cord: None Prep: Povidone-Iodine (Betadine Anesthesia Type: None Episiotomy Type: None Laceration: 1st Degree (midline that was small and hemostatic at the posterior fourchette, not repaired) Placenta: Intact, Spontaneous Cord: 3 Vessels Estimated Blood Loss: 150 Resuscitation Needed: No [place]: Bulb Syringe, Stimulated, Warmed, [place] Used Provider: Lee Null Score 1 min: 8 Score 5 min: 9 Second Stage Interventions: Reports: Pushing, Stirrups/Leg Supports Delivery Comments (Free Text/Narrative):: Stage I: Teto Harrison was admitted for advanced cervical dilation and contractions. On admission her cervix was dilated to 5 to 6 cm. She was GBS positive based on GBS bacteriuria during . Attempt was made to place an IV but there was difficulty in getting the IV placed. She eventually had an antecubital IV placed and she was started on ampicillin and received a 2 g IV bolus prior to delivery. The ampicillin 2 g dose was completed approximately 15 minutes prior to delivery. Shortly after the IV was placed she was checked and noted to be complete with a bulging bag of water and at +1 to +2 station and feeling significant pressure like she had to push. Decision was made to proceed with delivery. Patient was placed in dorsal lithotomy position and she had artificial rupture membranes with [place] with return of moderate amount of clear fluid. She began pushing after artificial rupture of membranes. Stage II: On 11/27/2020 she had a normal vaginal delivery of a live female at 11:29. Apgars of 8 & 9. Weight of 2890 g (6 lbs 5.9 oz). Length of 20.0 inches. There was no nuchal cord. Infant was delivered in MIRANDA position. The cord was doubly clamped and cut by myself. Infant was placed on mother's abdomen. Stage III: She had a spontaneous delivery of an intact placenta in [place]ace presentation. Three vessel cord. She was given pitocin and fundal massage. She had a small first-degree laceration that was hemostatic at the posterior fourchette that was not repaired. Mom and baby were stable to recovery. EBL of 150 mL. Lee Null MD 12:15 PM 11/27/2020 - General Info Date of Service: 11/27/20 - Patient Data Vitals - Most Recent: Last Vital Signs Temp 36.7 C 11/27/20 09:57 Pulse 98 11/27/20 09:57 Resp 16 11/27/20 09:57 BP 123/67 11/27/20 09:57 Pulse Ox 100 11/27/20 09:57 Weight - Most Recent: 88.133 kg Lab Results Last 24 Hours: Laboratory Results - last 24 hr 11/27/20 Range/Units 10:53 WBC 8.22 (3.98-10.04) K/mm3 RBC 4.61 (3.98-5.22) M/mm3 Hgb 12.3 (11.2-15.7) gm/dl Hct 37.5 (34.1-44.9) % MCV 81.3 D (79.4-94.8) fl MCH 26.7 (25.6-32.2) pg MCHC 32.8 (32.2-35.5) g/dl RDW Std Deviation 41.7 (36.4-46.3) fL Plt Count 278 (182-369) K/mm3 MPV 10.3 (9.4-12.3) fl Neut % (Auto) 65.9 (34.0-71.1) % Lymph % (Auto) 26.6 (19.3-51.7) % [place] % (Auto) 7.1 (4.7-12.5) % Eos % (Auto) 0.2 L (0.7-5.8) Baso % (Auto) 0.1 (0.1-1.2) % Neut # (Auto) 5.41 (1.56-6.13) K/mm3 Lymph # (Auto) 2.19 (1.18-3.74) K/mm3 [place] # (Auto) 0.58 H (0.24-0.36) K/mm3 Eos # (Auto) 0.02 L (0.04-0.36) K/mm3 Baso # (Auto) 0.01 (0.01-0.08) K/mm3 Med Orders - Current: Current Medications Acetaminophen (Tylenol) 650 mg PO Q6H PRN PRN Reason: Pain (Mild 1-3) and fever Lactated Ringer's (Ringers, Lactated) 1,000 mls @ 100 mls/hr IV ASDIRECTED TRACY Ampicillin Sodium 1 gm/ Sodium (Chloride) 100 mls @ 200 mls/hr IV Q4H TRACY Oxytocin/Lactated Ringer's (Pitocin In Lr 10 Units/1,000 Ml) 10 unit in 1,000 mls @ 100 mls/hr IV .CONTINUOUS TRACY; Protocol Nalbuphine HCl (Nubain) 10 mg IVPUSH Q2H PRN PRN Reason: Pain Sodium Chloride (Saline Flush) 10 ml FLUSH ASDIRECTED PRN PRN Reason: Keep Vein Open Discontinued Medications Ampicillin Sodium (Ampicillin) Confirm Administered Dose 2 gm IV .STK-MED ONE Stop: 11/27/20 10:43 Ampicillin Sodium 2 gm/ Sodium (Chloride) 100 mls @ 200 mls/hr IV ONETIME ONE Stop: 11/27/20 11:29 - Problem List & Annotations (1) GBS bacteriuria SNOMED Code(s): 82280947 Code(s): R82.71 - BACTERIURIA Status: Acute Current Visit: Yes (2) Advanced maternal age in multigravida SNOMED Code(s): 973902192 Code(s): O09.529 - SUPERVISION OF ELDERLY MULTIGRAVIDA, UNSPECIFIED TRIMESTER Status: Acute Current Visit: Yes (3) 38 weeks gestation of SNOMED Code(s): 09459386 Code(s): Z3A.38 - 38 WEEKS GESTATION OF Status: Acute Current Visit: No (4) Sickle cell trait SNOMED Code(s): 99313220 Code(s): D57.3 - SICKLE-CELL TRAIT Status: Acute Current Visit: No (5) First degree perineal laceration during delivery SNOMED Code(s): 357151572 Code(s): O70.0 - FIRST DEGREE PERINEAL LACERATION DURING DELIVERY Status: Acute Current Visit: Yes (6) Vaginal delivery SNOMED Code(s): 732467211 Code(s): O80 - ENCOUNTER FOR FULL-TERM UNCOMPLICATED DELIVERY Status: Acute Current Visit: No - Problem List Review Problem List Initiated/Reviewed/Updated: Yes - My Orders Last 24 Hours: My Active Orders 11/27/20 09:57 Patient Status [ADT] Routine Resuscitation Status Routine 11/27/20 10:40 Acetaminophen [TylenoL] 650 mg PO Q6H PRN Nalbuphine [Nubain] 10 mg IVPUSH Q2H PRN Sodium Chloride 0.9% [Saline Flush] 10 ml FLUSH ASDIRECTED PRN 11/27/20 10:40 Activity as Tolerated [RC] PFP Communication Order [RC] ASDIRECTED Heart Tones [RC] ASDIRECTED Notify Provider Vital Signs [RC] PRN Notify Provider [RC] PFP Notify Provider [RC] PRN Peripheral IV Care [RC] . DIRECTED Pump Management, Intrathecal [RC] ASDIRECTED Urinary Catheter Assessment [RC] ASDIRECTED Vital Signs [RC] PER UNIT ROUTINE BLOOD BANK HOLD SPECIMEN [BBK] Routine Electronic Heart Tones Ext w TOCO [WOMSER] Routine Electronic Heart Tones Internal [WOMSER] Per Unit Routine Peripheral IV Insertion Adult [OM.PC] Routine 11/27/20 10:45 Lactated Ringers [Ringers, Lactated] 1,000 ml IV ASDIRECTED Oxytocin/Lactated Ringers [Pitocin in LR 10 Units/1,000 ML] 10 unit in 1,000 ml IV .CONTINUOUS 11/27/20 10:53 RAPID PLASMA REAGIN,RPR [CHEM] Routine 11/27/20 Lunch Regular Diet [DIET] 11/27/20 11:42 CORONAVIRUS COVID-19 ELMER [MOLEC] Stat 11/27/20 11:46 Patient Status Manage Transfer [TRANSFER] Routine 11/27/20 13:00 Ampicillin 1 gm Sodium Chloride 0.9% [Normal Saline] 100 ml IV Q4H - Plan Plan:: Teto Tello is a 35-year-old now -0-0-4 female status post , PPD #0 complicated by GBS bacteriuria and received 1 dose of ampicillin approximately 15 minutes prior to delivery, sickle cell trait, advanced maternal age and history of COVID-19 infection during Admit to inpatient following normal spontaneous vaginal delivery Continue Pitocin per unit protocol following delivery of placenta and lactated Ringer's until tolerating regular diet Regular diet Vitals per unit routine Ibuprofen and Tylenol for pain control Assist with bottlefeeding as needed Continue to monitor lochia Anticipate discharge home on day #2 with history of GBS bacteriuria and only receiving 1 dose of antibiotics approximately 15 minutes prior to leslie gilbert for additional monitoring of the Lee Null MD 12:15 PM 11/27/2020
[2020-11-27] MEDS ORDERED: Witch Hazel Medicated Pads 40/Jar TOP PRN (12:38)
[2020-11-27] MEDS ORDERED: Hydrocortisone Acetate 25 MG Supp RECTAL PRN (12:38)
[2020-11-27] MEDS ORDERED: Benzocaine/Menthol 20%-0.5% Spray 56 GM Canister TOP PRN (12:38)
[2020-11-27] MEDS: Ibuprofen 600 MG Tab PO PRN ×2 (12:52→19:18)
[2020-11-27] MEDS ORDERED: Ampicillin 1 GM in Sodium Chloride 0.9% 100 ML IV SCH (13:00)
[2020-11-27] MEDS: Acetaminophen 325 MG Tab PO PRN ×2 (13:34→23:01)
[2020-11-28] MEDS: Ibuprofen 600 MG Tab PO PRN ×3 (02:53→19:51)
--- NOTE | 2020-11-28 08:57 | PCM.SN.2 ---
- Free Text/Narrative Note: Post Progress Note PPD #1 Subjective: Doing well overall. Ambulating without difficulty. Lochia minimal. Voiding without difficulty. Tolerating regular diet without nausea or vomiting. Pain controlled with oral medications. Bottlefeeding with minimal difficulty. Denies producing any breastmilk at this time. Objective: Vitals: Vital Signs - 24 hr 11/27/20 11/27/20 11/27/20 09:57 15:48 20:25 Temperature 37.3 C 37.3 C Temperature [ 36.7 C Temporal] Pulse, 69 70 Peripheral Pulse, 98 Peripheral [ Pulse Oximetry] Respiratory 16 16 14 Rate Blood Pressure 121/60 101/61 Blood Pressure 123/67 [Upper Arm] O2 Sat by Pulse 100 98 98 Oximetry 11/28/20 02:55 Temperature 36.6 C Temperature [ Temporal] Pulse, 68 Peripheral Pulse, Peripheral [ Pulse Oximetry] Respiratory 14 Rate Blood Pressure 102/65 Blood Pressure [Upper Arm] O2 Sat by Pulse 100 Oximetry Physical Exam General: Alert and oriented, no acute distress Lungs: Clear to auscultation bilaterally Heart: Regular rate and rhythm Abdomen: Soft, minimal appropriate tenderness, non-distended, fundus midline, nontender, and at the umbilicus Extremities: No edema Laboratory Tests 11/27/20 11/27/20 Range/Units 10:53 11:00 WBC 8.22 (3.98-10.04) K/mm3 RBC 4.61 (3.98-5.22) M/mm3 Hgb 12.3 (11.2-15.7) gm/dl Hct 37.5 (34.1-44.9) % MCV 81.3 D (79.4-94.8) fl MCH 26.7 (25.6-32.2) pg MCHC 32.8 (32.2-35.5) g/dl RDW Std Deviation 41.7 (36.4-46.3) fL Plt Count 278 (182-369) K/mm3 MPV 10.3 (9.4-12.3) fl Neut % (Auto) 65.9 (34.0-71.1) % Lymph % (Auto) 26.6 (19.3-51.7) % [place] % (Auto) 7.1 (4.7-12.5) % Eos % (Auto) 0.2 L (0.7-5.8) Baso % (Auto) 0.1 (0.1-1.2) % Neut # (Auto) 5.41 (1.56-6.13) K/mm3 Lymph # (Auto) 2.19 (1.18-3.74) K/mm3 [place] # (Auto) 0.58 H (0.24-0.36) K/mm3 Eos # (Auto) 0.02 L (0.04-0.36) K/mm3 Baso # (Auto) 0.01 (0.01-0.08) K/mm3 SARS-CoV-2 RNA (ELMER) Negative (NEGATIVE) ASSESSMENT: 35-year-old female -0-0-4 s/p normal vaginal delivery PPD #1, complicated by GBS bacteriuria received 1 dose of ampicillin shortly prior to delivery, sickle cell trait, advanced maternal age and history of COVID-19 infection during PLAN: Doing well Bottlefeeding with minimal difficulty. Assist as needed Lochia minimal. Continue to monitor for appropriate lochia. Continue routine care Anticipate discharge home tomorrow Lee Null MD 8:56 AM 11/28/2020
[2020-11-28] MEDS: Prenatal Multivitamin with Calcium/Folic Acid/Iron Tab PO SCH (09:26)
[2020-11-28] MEDS: Acetaminophen 325 MG Tab PO PRN (15:47)
--- NOTE | 2020-11-29 09:29 | PCM.SN.2 ---
- Free Text/Narrative Note: Post Progress Note PPD #2 Subjective: Continues to do well overall. Ambulating without difficulty. Lochia minimal and reports that she is only having light spotting at this time. Voiding without difficulty. Tolerating regular diet without nausea or vomiting. Pain controlled with oral medications. Bottlefeeding with minimal difficulty. Denies producing any breastmilk at this time. Objective: Vitals: Vital Signs - 24 hr 11/28/20 11/28/20 11/29/20 09:29 19:51 03:47 Temperature 37.7 C 36.6 C 36.9 C Pulse, 82 66 61 Peripheral Respiratory 18 14 14 Rate Blood Pressure 110/59 L 113/60 119/70 O2 Sat by Pulse 96 99 98 Oximetry 11/29/20 07:43 Temperature 37.4 C Pulse, 64 Peripheral Respiratory 15 Rate Blood Pressure 116/64 O2 Sat by Pulse 97 Oximetry Physical Exam General: Alert and oriented, no acute distress Lungs: Clear to auscultation bilaterally Heart: Regular rate and rhythm Abdomen: Soft, minimal appropriate tenderness, non-distended, fundus midline, nontender, and at the umbilicus Extremities: No edema ASSESSMENT: 35-year-old female -0-0-4 s/p normal vaginal delivery PPD #2, complicated by GBS bacteriuria received 1 dose of ampicillin shortly prior to delivery, sickle cell trait, advanced maternal age and history of COVID-19 infection during PLAN: Doing well Bottlefeeding with minimal difficulty. Assist as needed Lochia minimal. Continue to monitor for appropriate lochia. Continue routine care Discharge home today Lee Null MD 9:24 AM 11/29/2020
--- NOTE | 2020-11-29 09:38 | PCM.DCSUM1 ---
Discharge Summary - Hospital Course Free Text/Narrative:: - General Info Date of Service: 11/27/20 Mother's Due Date: 12/09/20 - Delivery Note Labor: Spontaneous Delivery Outcome: Livebirth Infant Delivery Method: Spontaneous Vaginal Delivery-Single Presentation: Left Occiput Anterior (MIRANDA) Nuchal Cord: None Prep: Povidone-Iodine (Betadine Anesthesia Type: None Episiotomy Type: None Laceration: 1st Degree (midline that was small and hemostatic at the posterior fourchette, not repaired) Placenta: Intact, Spontaneous Cord: 3 Vessels Estimated Blood Loss: 150 Resuscitation Needed: No [place]: Bulb Syringe, Stimulated, Warmed, [place] Used Provider: Lee Null Score 1 min: 8 Score 5 min: 9 Second Stage Interventions: Reports: Pushing, Stirrups/Leg Supports Delivery Comments (Free Text/Narrative):: Stage I: Teto Harrison was admitted for advanced cervical dilation and contractions. On admission her cervix was dilated to 5 to 6 cm. She was GBS positive based on GBS bacteriuria during . Attempt was made to place an IV but there was difficulty in getting the IV placed. She eventually had an antecubital IV placed and she was started on ampicillin and received a 2 g IV bolus prior to delivery. The ampicillin 2 g dose was completed approximately 15 minutes prior to delivery. Shortly after the IV was placed she was checked and noted to be complete with a bulging bag of water and at +1 to +2 station and feeling significant pressure like she had to push. Decision was made to proceed with delivery. Patient was placed in dorsal lithotomy position and she had artificial rupture membranes with [place] with return of moderate amount of clear fluid. She began pushing after artificial rupture of membranes. Stage II: On 11/27/2020 she had a normal vaginal delivery of a live female at 11:29. Apgars of 8 & 9. Weight of 2890 g (6 lbs 5.9 oz). Length of 20.0 inches. There was no nuchal cord. was delivered in MIRANDA position. The cord was doubly clamped and cut by myself. Infant was placed on mother's abdomen. Stage III: She had a spontaneous delivery of an intact placenta in [facility]. Three vessel cord. She was given pitocin and fundal massage. She had a small first-degree laceration that was hemostatic at the posterior fourchette that was not repaired. Mom and baby were stable to recovery. EBL of 150 mL. Diagnosis: Stroke: No - Discharge Data Discharge Date: 11/29/20 Discharge Disposition: Home, Self-Care 01 Condition: Good - Referral to Home Health Primary Care Physician: Trever Russ MD - Discharge Diagnosis/Problem(s) (1) GBS bacteriuria SNOMED Code(s): 66675215 ICD Code: R82.71 - BACTERIURIA Status: Acute Current Visit: Yes (2) Advanced maternal age in multigravida SNOMED Code(s): 345491497 ICD Code: O09.529 - SUPERVISION OF ELDERLY MULTIGRAVIDA, UNSPECIFIED TRIMESTER Status: Acute Current Visit: Yes (3) 38 weeks gestation of SNOMED Code(s): 25721099 ICD Code: Z3A.38 - 38 WEEKS GESTATION OF Status: Acute Current Visit: No (4) Sickle cell trait SNOMED Code(s): 73585263 ICD Code: D57.3 - SICKLE-CELL TRAIT Status: Acute Current Visit: No (5) First degree perineal laceration during delivery SNOMED Code(s): 694414182 ICD Code: O70.0 - FIRST DEGREE PERINEAL LACERATION DURING DELIVERY Status: Acute Current Visit: Yes (6) Vaginal delivery SNOMED Code(s): 322070485 ICD Code: O80 - ENCOUNTER FOR FULL-TERM UNCOMPLICATED DELIVERY Status: Acute Current Visit: No - Patient Summary/Data Complications: None Consults: None Hospital Course: Teto Harrison was admitted for advanced cervical dilation and uterine contractions. On admission her cervix was dilated to 5-6 cm. She was GBS positive with GBS bacteriuria during .she had an IV inserted and was given 1 dose of ampicillin 2 g IV for GBS prophylaxis. This occurred approximately 15 to 30 minutes before delivery. She progressed to complete. She had artificial rupture of membranes with clear fluid. She began pushing. On 11/27/2020 she had a normal vaginal delivery of a live female at 11:29. Apgars of 8 and 9. Weight of 2890 g (6 pounds 5.9 ounces). Her course was uneventful. Her pain was well controlled and she had minimal lochia. She was ambulating, tolerating a regular diet and voiding normally. She was bottlefeeding with minimal difficulty. She was not having any breast milk production. She was afebrile and her hematocrit was 37.5 on admission. She desired to be discharged home on the morning of PPD #2. Her blood type is A+. - Patient Instructions Diet: Regular Diet as Tolerated Activity: Apply Ice, As Tolerated Activity, Other: Nothing in the vagina for 6 weeks Driving: May Drive Today Showering/Bathing: May Shower Notify Provider of: Fever, Increased Pain, Swelling and Redness, Drainage, Nausea and/or Vomiting Other/Special Instructions: Please contact your physician's office if you have heavy vaginal bleeding enough to soak a pad in less than an hour for several hours. Monitor for any signs of an infection in the breasts with severe pain or redness of the breast. - Discharge Plan *PRESCRIPTION DRUG MONITORING PROGRAM REVIEWED*: Not Applicable *COPY OF PRESCRIPTION DRUG MONITORING REPORT IN PATIENT DALILA: Not Applicable Home Medications: Home Meds Vit,[place] 74/Iron/Folic [ Low Iron Tablet] 1 tab PO DAILY 07/07/20 [History] Acetaminophen [Tylenol] 650 mg PO Q6H PRN tablet 11/29/20 [Rx] Benzocaine/Menthol [Dermoplast Pain Relief Gray] 1 spray TOP ASDIRECTED PRN canister 11/29/20 [Rx] Hydrocortisone Acetate [Anucort-HC] 25 mg RECTAL BID PRN supp 11/29/20 [Rx] Ibuprofen [Motrin] 600 mg PO Q6H PRN tablet 11/29/20 [Rx] witch Sumeet [Tucks] 1 pad TOP ASDIRECTED PRN pad 11/29/20 [Rx] Patient Handouts: Care After Vaginal Delivery Referrals: Lee Null MD [Physician] - (Follow-up in 2 weeks for routine visit or earlier as needed.) - Discharge Summary/Plan Comment DC Time >30 min.: No - Patient Data Vitals - Most Recent: Last Vital Signs Temp 37.4 C 11/29/20 07:43 Pulse 64 11/29/20 07:43 Resp 15 11/29/20 07:43 BP 116/64 11/29/20 07:43 Pulse Ox 97 11/29/20 07:43 Weight - Most Recent: 88.133 kg I&O - Last 24 hours: Intake & Output 11/28/20 11/29/20 11/29/20 22:59 06:59 14:59 Intake Total 240 Balance 240 Med Orders - Current: Current Medications Acetaminophen (Tylenol) 650 mg PO Q6H PRN PRN Reason: mild pain or fever Last Admin: 11/28/20 15:47 Dose: 650 mg Documented by: Benzocaine/Menthol (Dermoplast Pain Relief Gray) 0 gm TOP ASDIRECTED PRN PRN Reason: Perineal Comfort Measure Last Admin: 11/27/20 12:52 Dose: 1 applic Documented by: Hydrocortisone Acetate (Anucort-Hc) 25 mg RECTAL BID PRN PRN Reason: Hemorrhoid pain Oxytocin/Lactated Ringer's (Pitocin In Lr 10 Units/1,000 Ml) 10 unit in 1,000 mls @ 100 mls/hr IV TITRATE TRACY; Protocol Ibuprofen (Motrin) 600 mg PO Q6H PRN PRN Reason: Mild pain or fever Last Admin: 11/28/20 19:51 Dose: 600 mg Documented by: Dominic Multivit/[place]/Iron/Folic Ac ( Plus Iron) 1 each PO DAILY TRACY Last Admin: 11/28/20 09:26 Dose: 1 each Documented by: Sharee Tony ([facility]) 1 pad TOP ASDIRECTED PRN PRN Reason: Perineal Comfort Measure Last Admin: 11/27/20 12:52 Dose: 1 applic Documented by: Discontinued Medications Acetaminophen (Tylenol) 650 mg PO Q6H PRN PRN Reason: Pain (Mild 1-3) and fever Ampicillin Sodium (Ampicillin) Confirm Administered Dose 0 gm IV .STK-MED ONE Stop: 11/27/20 10:43 Last Admin: 11/27/20 16:50 Dose: Not Given Documented by: Lactated Ringer's (Ringers, Lactated) 1,000 mls @ 100 mls/hr IV ASDIRECTED TRACY Ampicillin Sodium 2 gm/ Sodium (Chloride) 100 mls @ 200 mls/hr IV ONETIME ONE Stop: 11/27/20 11:29 Ampicillin Sodium 1 gm/ Sodium (Chloride) 100 mls @ 200 mls/hr IV Q4H TRACY Oxytocin/Lactated Ringer's (Pitocin In Lr 10 Units/1,000 Ml) 10 unit in 1,000 mls @ 100 mls/hr IV .CONTINUOUS TRACY; Protocol Nalbuphine HCl (Nubain) 10 mg IVPUSH Q2H PRN PRN Reason: Pain Sodium Chloride (Saline Flush) 10 ml FLUSH ASDIRECTED PRN PRN Reason: Keep Vein Open
[2020-11-29] MEDS: Acetaminophen 325 MG Tab PO PRN (09:46)
[2020-11-29] MEDS: Ibuprofen 600 MG Tab PO PRN ×2 (13:25→18:55)
[2020-11-29] MEDS: Prenatal Multivitamin with Calcium/Folic Acid/Iron Tab PO SCH (13:27)
[2020-11-29 16:33] VITALS: BP 96/62; PULSE 68
== END 2020-11-29 19:04 | disposition home or self-care (01) | DRG 807 ==
LOC: JD.OBCHECK 09:46 → JD.OB 10:36 → OBSVTOIN 11:29 → JD.OB 11:29
PROVIDERS: ADMIT Obstetrics & Gynecology; ATTEND Obstetrics & Gynecology
PROC: 10E0XZZ Delivery of Products of Conception, External Approach (ICD-10-PCS; principal; 2020-11-27)
PROC: 0HQ9XZZ Repair Perineum Skin, External Approach (ICD-10-PCS; 2020-11-27)
DX: O99.02 Anemia complicating childbirth (principal); Z37.0 Single live birth; O99.824 Streptococcus B carrier state complicating childbirth; Z3A.38 38 weeks gestation of pregnancy; O70.0 First degree perineal laceration during delivery; Z86.16 Personal history of COVID-19; D57.3 Sickle-cell trait; Z20.822 Contact with and (suspected) exposure to COVID-19
CPT/HCPCS: 36415; 59025; 59409; 85025; 86592; A9270-GY; U0002

== ENCOUNTER 2021-06-26 18:43 | Emergency (ER) | payer SELFPAY ==
[2021-06-26 19:31] VITALS: BP 119/102; PULSE 78
--- NOTE | 2021-06-26 19:47 | EDM.PDOC ---
ED HPI GENERAL MEDICAL PROBLEM - General Chief Complaint: General Stated Complaint: CONDOM STUCK IN VAGINA Time Seen by Provider: 06/26/21 19:21 Source of Information: Reports: Patient, RN Notes Reviewed History Limitations: Reports: No Limitations - History of Present Illness INITIAL COMMENTS - FREE TEXT/NARRATIVE: Patient is a 35-year-old female who presents to the ER for the evaluation of having a condom stuck in her vagina. Patient states she was having sex with her on , for which they always use condoms, and somehow the condom went missing. Patient thought maybe it could have been stuck inside her. She is not had any sort of foul smell or drainage coming from the vagina. She has no uncomfortable feelings in the vagina. Patient states that she does not believe she is , she does have irregular periods and her last menses was around May 03. She is does not have any concerns today at all about . She was just worried that the condom could be stuck inside her. No fevers, no chills, no cough, shortness of breath, nausea/vomiting/diarrhea or any sort of abdominal tenderness. Lower Pelvic Pain Score (Numeric/FACES): 3 - Related Data Allergies Allergy/AdvReac Type Severity Reaction Status Date / Time No Known Allergies Allergy Verified 11/27/20 10:22 Home Meds: Home Meds . [No Known Home Meds] 06/26/21 [History] Past Medical History - Past Health History Medical/Surgical History: Denies Medical/Surgical History HEENT History: Reports: Impaired Vision Cardiovascular History: Reports: None Respiratory History: Reports: None Gastrointestinal History: Reports: GERD Genitourinary History: Reports: Renal Calculus [employer] History: Reports: Other [employer] History: x4 Musculoskeletal History: Reports: None Neurological History: Reports: None Psychiatric History: Reports: None Endocrine/Metabolic History: Reports: None Hematologic History: Reports: Other (See Below) Other Hematologic History: Sickle cell trait (As) Immunologic History: Reports: None Oncologic (Cancer) History: Reports: None Dermatologic History: Reports: None - Infectious Disease History Infectious Disease History: Reports: None - Past Surgical History Head Surgeries/Procedures: Reports: None HEENT Surgical History: Reports: None Cardiovascular Surgical History: Reports: None Respiratory Surgical History: Reports: None GI Surgical History: Reports: None Other GI Surgeries/Procedures: umbilical hernia Female Surgical History: Reports: None Endocrine Surgical History: Reports: None Neurological Surgical History: Reports: None Musculoskeletal Surgical History: Reports: None Oncologic Surgical History: Reports: None Dermatological Surgical History: Reports: None Social & Family History - Family History Family Medical History: No Pertinent Family History Cardiac: Reports: None Respiratory: Reports: None GI: Reports: None : Reports: None OBGYN: Reports: None Musculoskeletal: Reports: None Neurological: Reports: None Psychiatric: Reports: None Endocrine/Metabolic: Reports: None - Tobacco Use Tobacco Use Status *Q: Never Tobacco User - Caffeine Use Caffeine Use: Reports: None - Recreational Drug Use Recreational Drug Use: No - Living Situation & Occupation Living situation: Reports: , with Family (In apartment in [place]) ED ROS GENERAL - Review of Systems Review Of Systems: Comprehensive ROS is negative, except as noted in HPI. ED EXAM, GENERAL - Physical Exam Exam: See Below Exam Limited By: No Limitations General Appearance: Alert, WD/WN, No Apparent Distress Respiratory/Chest: No Respiratory Distress, Lungs Clear, Normal Breath Sounds, No Accessory Muscle Use, Chest Non-Tender Cardiovascular: Normal Peripheral Pulses, Regular Rate, Rhythm, No Edema (Female) Exam: Normal External Exam (Luli Bren), Normal Speculum Exam, Normal Bimanual Exam, Other (The vagina was explored by manual exam, and there was no foreign body sensation to be noted throughout all cavities.) Neurological: Alert, Oriented, Normal Cognition, No Motor/Sensory Deficits Psychiatric: Normal Affect, Normal Mood Skin Exam: Warm, Dry, Intact, Normal Color, No Rash Course - Vital Signs Last Recorded V/S: Last Vital Signs Temp 97.4 F 06/26/21 19:29 Pulse 78 06/26/21 19:29 Resp 20 06/26/21 19:29 BP 119/102 H 06/26/21 19:29 Pulse Ox 99 06/26/21 19:29 - Re-Assessments/Exams Free Text/Narrative Re-Assessment/Exam: 06/26/21 19:45 Patient presents to the ER, because she believes that she had a condom still within her vagina from sexual intercourse with her on of this last week. The vagina was examined by speculum, and bimanual exam, and was probed thoroughly, and there is no foreign body sensation noted throughout the vagina whatsoever. I did explain the findings with the patient, and she was assured by this news. Departure - Departure Time of Disposition: 19:47 Disposition: Home, Self-Care 01 Condition: Good Clinical Impression: Discomfort of vagina - Discharge Information *PRESCRIPTION DRUG MONITORING PROGRAM REVIEWED*: No *COPY OF PRESCRIPTION DRUG MONITORING REPORT IN PATIENT DALILA: No Referrals: Lee Null MD [Primary Care Provider] - Additional Instructions: You were evaluated in the ER today as you believe you had a condom retained within your vagina. You were examined thoroughly, by speculum and manual exam, and no foreign body was found to be within your vagina. Please follow-up with [employer], if you have any continued symptoms, or you may return to the ER if symptoms seem to change or worsen. Sepsis Event Note (ED) - Focused Exam Vital Signs: Vital Signs Temp Pulse Resp BP Pulse Ox 06/26/21 19:29 97.4 F 78 20 119/102 H 99
== END 2021-06-26 20:00 | disposition home or self-care (01) ==
LOC: SUPCPDRO 18:43 → JD.ED 18:43
DX: R10.2 Pelvic and perineal pain (principal)
CPT/HCPCS: 99282; 99283

== ENCOUNTER 2021-07-02 19:18 | Emergency (ER) | payer SELFPAY ==
[2021-07-02 19:38] VITALS: BP 126/80; PULSE 89
[2021-07-02] MEDS ORDERED: Penicillin G Benzathine 1,200,000 Units/2 ML Syringe IM ONE (21:23)
--- NOTE | 2021-07-02 21:23 | EDM.PDOC ---
ED HPI GENERAL MEDICAL PROBLEM - General Chief Complaint: ENT Problem Stated Complaint: SORE THROAT Time Seen by Provider: 07/02/21 20:24 Source of Information: Reports: Patient History Limitations: Reports: No Limitations - History of Present Illness INITIAL COMMENTS - FREE TEXT/NARRATIVE: 35-year-old female presents the emergency department today with complaints of a 3-day history of sore throat, right ear pain and subjective fever and chills. Patient states she is otherwise healthy and has had no other symptoms. She denies any cough, shortness of breath, nausea, vomiting or diarrhea. She states she has been taking Tylenol every 4 hours for pain control and she states it has not helped. Treatments ESCROW REPRESENTATIVE: Reports: Acetaminophen Throat Pain Score (Numeric/FACES): 9 - Related Data Allergies Allergy/AdvReac Type Severity Reaction Status Date / Time No Known Allergies Allergy Verified 11/27/20 10:22 Home Meds: Home Meds . 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: Other ANALYTICAL SCIENTIST History: x4 Musculoskeletal History: Reports: None Neurological History: Reports: None Psychiatric History: Reports: None Endocrine/Metabolic History: Reports: None Hematologic History: Reports: Other (See Below) Other Hematologic History: Sickle cell trait (As) Immunologic History: Reports: None Oncologic (Cancer) History: Reports: None Dermatologic History: Reports: None - Infectious Disease History Infectious Disease History: Reports: None - Past Surgical History Head Surgeries/Procedures: Reports: None HEENT Surgical History: Reports: None Cardiovascular Surgical History: Reports: None Respiratory Surgical History: Reports: None GI Surgical History: Reports: None Other GI Surgeries/Procedures: umbilical hernia Female Surgical History: Reports: None Endocrine Surgical History: Reports: None Neurological Surgical History: Reports: None Musculoskeletal Surgical History: Reports: None Oncologic Surgical History: Reports: None Dermatological Surgical History: Reports: None Social & Family History - Family History Family Medical History: No Pertinent Family History Cardiac: Reports: None Respiratory: Reports: None GI: Reports: None : Reports: None OBGYN: Reports: None Musculoskeletal: Reports: None Neurological: Reports: None Psychiatric: Reports: None Endocrine/Metabolic: Reports: None - Tobacco Use Tobacco Use Status *Q: Never Tobacco User - Caffeine Use Caffeine Use: Reports: Tea - Recreational Drug Use Recreational Drug Use: No - Living Situation & Occupation Living situation: Reports: , with Family (In apartment in [place]) ED ROS ENT - Review of Systems Review Of Systems: Comprehensive ROS is negative, except as noted in HPI. ED EXAM, ENT - Physical Exam Exam: See Below Exam Limited By: No Limitations General Appearance: Alert, WD/WN, Mild Distress (Difficult for the patient to swallow) Ears: Normal External Exam, Hearing Grossly Normal Nose: Normal Inspection Mouth/Throat: Normal Inspection, Normal Gums, Normal Lips, Throat Pain, Tonsillar Erythema, Tonsillar Exudates, Tonsillar Swelling Head: Atraumatic, Normocephalic Neck: Normal Inspection, Supple, Lymphadenopathy (R). No: Lymphadenopathy (L) Respiratory/Chest: No Respiratory Distress, Lungs Clear, Normal Breath Sounds, No Accessory Muscle Use, Chest Non-Tender Cardiovascular: Normal Peripheral Pulses, Regular Rate, Rhythm, No Edema, No Murmur GI/Abdominal: Normal Bowel Sounds, Soft, Non-Tender, No Distention (Female) Exam: Deferred Rectal (Female) Exam: Deferred Back: Normal Inspection Extremities: Normal Inspection Neurological: Alert, Oriented, Normal Cognition Psychiatric: Normal Affect, Normal Mood Skin: Warm, Dry, Intact, Normal Color, No Rash Lymphatic: No Adenopathy Course - Vital Signs Text/Narrative:: As stated above 35-year-old female who presents with right ear pain and sore throat that started 3 days ago. On exam, tympanic membranes are unremarkable bilaterally. Patient's tonsils are erythematous, edematous and she has tonsillar exudates noted. Patient does have tonsillar lymph nodes easily palpated on the right side which are painful. Clinically this patient has strep tonsillitis. We will treat her with penicillin 1.2 million units IM and she will be discharged home. Last Recorded V/S: Last Vital Signs Temp 98.3 F 07/02/21 19:35 Pulse 89 07/02/21 19:35 Resp BP 126/80 07/02/21 19:35 Pulse Ox 100 07/02/21 19:35 Departure - Departure Time of Disposition: 21:25 Disposition: Home, Self-Care 01 Condition: Good Clinical Impression: Tonsillitis - Discharge Information Instructions: Tonsillitis, [id number] Referrals: PCP,None [Primary Care Provider] - Additional Instructions: You were seen in the emergency department today with complaints of sore throat and right ear pain. On exam your ears are unremarkable and there is no sign of infection however your is noted to have swollen and reddened tonsils with pustules. Clinically you have tonsillitis and were treated as such. You were given a shot of penicillin in the emergency department and this should clear up the infection. It may take 24 to 48 hours for you to notice a difference. Recommend that you take Tylenol 650 mg every 4 hours alternating with ibuprofen 600 mg every 4 hours. This should help to relieve pain and discomfort as well as controlling the fever. Drink plenty of fluids and get plenty rest. Should your condition worsen or change, do not hesitate returning to the emergency department. Sepsis Event Note (ED) - Evaluation Sepsis Screening Result: No Definite Risk - Focused Exam Vital Signs: Vital Signs Temp Pulse BP Pulse Ox 07/02/21 19:35 98.3 F 89 126/80 100
== END 2021-07-02 21:36 | disposition home or self-care (01) ==
LOC: JD.ED 19:18
DX: J03.90 Acute tonsillitis, unspecified (principal)
CPT/HCPCS: 96372; 99283; J0561

== ENCOUNTER 2022-12-17 16:53 | Emergency (ER) | payer SELFPAY ==
[2022-12-17 17:39] VITALS: BP 129/63; PULSE 64
[2022-12-17] MEDS ORDERED: Acetaminophen/HYDROcodone 325-5 MG Tab PO ONE (18:10)
== END 2022-12-17 18:32 | disposition home or self-care (01) ==
LOC: JD.ED 16:53
DX: K08.89 Other specified disorders of teeth and supporting structures (principal)
CPT/HCPCS: 99282; A9270

== ENCOUNTER 2023-10-09 12:02 | Day surgery (SDC) | payer BC ==
[2023-10-09] MEDS ORDERED: Lactated Ringers 1,000 ML IV ONE (12:03)
[2023-10-09] MEDS ORDERED: HYDROmorphone 0.5 MG/0.5 ML Syringe IVPUSH PRN (13:00)
[2023-10-09] MEDS ORDERED: fentaNYL 100 MCG/2 ML SDV IVPUSH PRN (13:00)
[2023-10-09] MEDS ORDERED: EPINEPHrine 1 MG/ML SDV ONE (14:12)
[2023-10-09] MEDS ORDERED: Lidocaine 1% 30 ML SDV ONE (14:12)
[2023-10-09] MEDS ORDERED: Acetaminophen/HYDROcodone 325-5 MG Tab PO SCH (16:14)
[2023-10-09 19:17] VITALS: BP 126/74; PULSE 74
== END 2023-10-09 17:20 | disposition home or self-care (01) ==
LOC: JD.SDS 12:02
PROVIDERS: ATTEND Surgery
DX: D17.24 Benign lipomatous neoplasm of skin and subcutaneous tissue of left leg (principal); D22.4 Melanocytic nevi of scalp and neck; K21.9 Gastro-esophageal reflux disease without esophagitis; Z79.899 Other long term (current) drug therapy
CPT/HCPCS: 13121; 21011; 27337; A9270; J0171; J7120; J3490